=== PATIENT | male | born 1965 | race Caucasian/White ===

== ENCOUNTER 2022-03-18 15:30 | Outpatient (RCR) | payer OTHER, SELFPAY | END 2022-04-09 12:10 | disposition home or self-care (01) | PROVIDERS: Visit Provider Physician Assistant | DX: M25.562 Pain in left knee (principal); Z51.89 Encounter for other specified aftercare | CPT/HCPCS: 97110; 97140 ==

== ENCOUNTER 2023-07-08 19:14 | Emergency (ER) | payer OTHER, SELFPAY ==
[2023-07-08 19:19] VITALS: BP 132/72; PULSE 77; RESP 18; TEMP 36.6; O2SAT 93; BMI 33.2
--- NOTE | 2023-07-08 19:55 | ED.GENADULT ---
HPI - General Adult General Chief complaint: Unspecified Complaint, Adult Stated complaint: [place] says hemg was 6.3-needs labs and blood if nee Time Seen by Provider: 07/08/23 19:28 History of Present Illness HPI narrative: Patient is a 57-year-old gentleman who has an enteric cutaneous fistula and will be operated on at [facility]. Patient states he has a fistula because of recurrent abdominal surgeries. He feels fine. He is very much looking forward to his surgery as the fistula does empty on to the service of his anterior abdomen. Unfortunately he was seen for preop in [facility] today and had a hemoglobin of roughly 6.5. Patient has history of anemia because of which he is uncertain. Patient states that he was told to come to the ER and have his hemoglobin rechecked in try to get his hemoglobin above 7. Patient has chronic hypertension and diabetes but is not on any blood thinners. Related Data Home Medications Medication Instructions Recorded Confirmed amlodipine 10 mg tablet 10 mg PO DAILY 07/08/23 07/08/23 aripiprazole 20 mg tablet 20 mg PO DAILY 07/08/23 07/08/23 buprenorphine 8 mg-naloxone 2 mg 10 mg sublingual 3XD 07/08/23 07/08/23 sublingual film ergocalciferol (vitamin D2) 1,250 1,250 mcg PO 07/08/23 mcg (50,000 unit) capsule furosemide 20 mg tablet 20 mg PO DAILY 07/08/23 07/08/23 glucagon 3 mg/actuation nasal mg intranasal DIRECTED 07/08/23 spray (Baqsimi) hypoglycemia hydrocodone 10 mg-acetaminophen 1 tab PO 3XD PRN chronic pain 07/08/23 07/08/23 325 mg tablet insulin glargine-yfgn 100 unit/mL 25 unit subcut QPM 07/08/23 07/08/23 (3 mL) subcutaneous pen (Semglee (insulin glargine-yfgn) Pen) insulin lispro 100 unit/mL subcut 07/08/23 subcutaneous pen (Humalog KwikPen (U-100) Insulin) levothyroxine 88 mcg tablet mcg PO 07/08/23 fdkcul-gveqbkcf-nydwnsf 4 cap PO 3XD 07/08/23 07/08/23 36,000-114,000-180,000 unit capsule,delay rel (Creon) losartan 25 mg tablet 25 mg PO DAILY 07/08/23 07/08/23 nystatin-triamcinolone 100,000 applic topical BID-TID PRN 07/08/23 unit/g-0.1 % topical cream pimecrolimus 1 % topical cream applic topical BID 07/08/23 potassium chloride 20 mEq 20 meq PO 3XD 07/08/23 07/08/23 tablet,extended release(part/cryst) (Klor-Con M) pregabalin 200 mg capsule 200 mg PO 3XD 07/08/23 07/08/23 rosuvastatin 40 mg tablet 40 mg PO DAILY 07/08/23 07/08/23 semaglutide 0.25 mg or 0.5 mg (2 mg subcut 07/08/23 mg/3 mL) subcutaneous pen injector (Ozempic) testosterone 2 pump topical DAILY 07/08/23 07/08/23 varenicline 0.03 mg/spray nasal intranasal 07/08/23 spray (Tyrvaya) venlafaxine 37.5 mg 37.5 mg PO DAILY 07/08/23 07/08/23 capsule,extended release 24 hr Allergies Allergy/AdvReac Type Severity Reaction Status Date / Time TERRA Inhibitors Allergy Severe Verified 07/08/23 19:27 azithromycin [From Zithromax] Allergy Mild Verified 07/08/23 19:27 ketorolac [From Toradol] Allergy Mild Verified 07/08/23 19:27 Review of Systems Status of ROS: Reports: 10 or more systems reviewed and unremarkable except as noted in History and below [facility] Medical History (Updated 07/08/23 @ 21:00 by Biju Mccracken MD) Amputated right leg ?S88.911A - Complete traumatic amputation of right lower leg, level unspecified, initial encounter (ICD-10) Anemia ?D64.9 - Anemia, unspecified (ICD-10) Diabetes ?E11.9 - Type 2 diabetes mellitus without complications (ICD-10) SBO (small bowel obstruction) ?K56.609 - Unspecified intestinal obstruction, unspecified as to partial versus complete obstruction (ICD-10) Fistula ?L98.8 - Other specified disorders of the skin and subcutaneous tissue (ICD-10) Hernia ?K46.9 - Unspecified abdominal hernia without obstruction or gangrene (ICD-10) Surgical History (Updated 07/08/23 @ 20:02 by Biju Mccracken MD) H/O splenectomy ?Z90.81 - Acquired absence of spleen (ICD-10) Exam Narrative: Exam Narrative: EXAM GENERAL: Patient appears comfortable and well. Pale. EYES: No scleral icterus. THYROID: no thyroid nodules or thyromegaly. LYMPH: No supraclavicular or cervical lymphadenopathy. HEART: Regular rate and rhythm with no murmurs, rubs, or gallops. LUNGS: Clear to auscultation bilaterally with no crackles or wheezes. ABD: Soft, non tender, non distended. PSYCH: Good eye contact, speech is not pressured. Const: Vital Signs, click to edit/add: Vital Signs - 24 hr 07/08/23 19:19 Temperature 97.9 F Pulse Rate [Pulse Oximeter] 77 Respiratory Rate 18 Blood Pressure [Le ft Upper Arm] 132/72 Pulse Oximetry 93 Oxygen Delivery Me thod Room Air Course Course ED Course: Repeat labs pending. Vital Signs Vital signs: Initial Vital Signs Temperature 97.9 F 07/08/23 19:19 Temperature Source Temporal Artery Scan 07/08/23 19:19 Pulse Rate 77 07/08/23 19:19 Respiratory Rate 18 07/08/23 19:19 Blood Pressure 132/72 07/08/23 19:19 Blood Pressure Mean 92 07/08/23 19:19 Blood Pressure Position Sitting 07/08/23 19:19 Pulse Oximetry 93 07/08/23 19:19 Oxygen Delivery Method Room Air 07/08/23 19:19 Vital Signs Temperature 97.9 F 07/08/23 19:19 Pulse Rate 77 07/08/23 19:19 Respiratory Rate 18 07/08/23 19:19 Blood Pressure 132/72 07/08/23 19:19 Pulse Oximetry 93 07/08/23 19:19 Oxygen Delivery Method Room Air 07/08/23 19:19 Temperature 97.9 F 07/08/23 19:19 Pulse Rate 77 07/08/23 19:19 Respiratory Rate 18 07/08/23 19:19 Blood Pressure 132/72 07/08/23 19:19 Pulse Oximetry 93 07/08/23 19:19 Oxygen Delivery Method Room Air 07/08/23 19:19 Medical Decision Making MDM Narrative Medical decision making narrative: Patient is a 57-year-old gentleman who has a complex medical issues as outlined above who presents with anemia from his preop visit at [place] earlier today. We do recheck his hemoglobin finding it to be 6.2. Patient has chronic anemia and is scheduled for an enteric cutaneous fistula repair on Tuesday. His instructions from surgeon is to transfuse get him above 7. Patient has no obvious signs of bleeding. This time I did give him 1 unit of packed red blood cells and asked him to have his hemoglobin rejected [place] prior to his surgery on Tuesday. Patient is otherwise asymptomatic. Medical Records Medical records reviewed: Yes I reviewed the patient's medical records Lab Data Labs: Lab Results 07/08/23 Range/Units 20:26 WBC 3.73 L (4.50-11.00) K/uL RBC 2.62 L (4.30-5.90) m/uL Hgb 6.2 L* (13.5-17.5) gm/dL Hct 22.5 L (37.0-53.0) % MCV 86 (80-100) fL MCH 24 L (26-34) pg MCHC 28 L (32-36) gm/dL RDW Coeff of Feliciano 20.3 H (11.5-15.5) % Plt Count 457 H (140-440) K/uL Neut % (Auto) 31.1 L (42.0-72.0) % Lymph % (Auto) 36.2 (20-44) % Otero % (Auto) 22.8 H (0.0-11.0) % Eos % (Auto) 9.1 H (0.0-7.0) % Baso % (Auto) 0.5 (0.0-3.0) % Neut # (Auto) 1.20 L (1.7-7.0) K/uL Lymph # (Auto) 1.40 (0.90-2.90) K/uL Otero # (Auto) 0.90 (0.00-0.90) K/UL Eos # (Auto) 0.30 (0.00-0.50) K/uL Baso # (Auto) 0.00 (0.00-0.30) K/uL Abs Immat Gran (auto) 0.00 (0.00-0.30) K/uL Imm/Tot Granulo (auto) 0.3 % Sodium 137 (135-149) mmol/L Potassium 4.1 (3.6-5.1) mmol/L Chloride 101 (96-114) mmol/L Carbon Dioxide 31 (20-32) mmol/L Anion Gap 5 L (7-15) mEq/L BUN 7 (7-30) mg/dL Creatinine 0.4 L (0.5-1.5) mg/dL Estimated Creat Clear 219.63 Estimated GFR 128 ml/min Glucose 155 H (60-115) mg/dL Calcium 7.7 L (8.4-10.6) mg/dL Discharge Plan Discharge Clinical Impression: Anemia Patient Disposition: Home, Self-Care Condition: Stable Instructions: Anemia (ED) Additional Instructions: Continue current care Follow-up for your surgery on Tuesday. Activity Level: No Restrictions Discharge Diet: Regular Prescriptions: No Action venlafaxine 37.5 mg capsule,extended release 24hr 37.5 mg PO DAILY pimecrolimus 1 % cream topical BID hydrocodone-acetaminophen 10-325 mg tablet 1 tab PO 3XD PRN (Reason: chronic pain) levothyroxine 88 mcg tablet PO potassium chloride [Klor-Con M20] 20 mEq tablet,ER particles/crystals 20 meq PO 3XD amlodipine 10 mg tablet 10 mg PO DAILY losartan 25 mg tablet 25 mg PO DAILY nystatin-triamcinolone 100,000-0.1 unit/g-% cream topical BID-TID PRN furosemide 20 mg tablet 20 mg PO DAILY ergocalciferol (vitamin D2) 1,250 mcg (50,000 unit) capsule 1,250 mcg PO insulin lispro [Humalog KwikPen Insulin] 100 unit/mL insulin pen subcut aripiprazole 20 mg tablet 20 mg PO DAILY rosuvastatin 40 mg tablet 40 mg PO DAILY pregabalin 200 mg capsule 200 mg PO 3XD buprenorphine-naloxone 8-2 mg film 10 mg sublingual 3XD testosterone 20.25 mg/1.25 gram (1.62 %) gel in metered-dose pump 2 pump topical DAILY Creon 36,000-114,000- 180,000 unit capsule,delayed release(DR/EC) 4 cap PO 3XD Baqsimi 3 mg/actuation spray,non-aerosol INTRANASAL DIRECTED insulin glargine-yfgn [Semglee(insulin glarg-yfgn)Pen] 100 unit/mL (3 mL) insulin pen 25 unit subcut QPM Tyrvaya 0.03 mg/spray spray, metered, non-aerosol INTRANASAL Patient Comments: [NO ORIGINAL SIG] Ozempic 0.25 mg or 0.5 mg (2 mg/3 mL) pen injector subcut Follow Up/Referrals: Provider,Not a Local [Primary Care Provider] - Stand Alone Forms: [employer] Info Instructions
[2023-07-08 20:40] LABS: Basophils Percent Auto 0.5 % (0.0-3.0); Eosinophils Percent Auto 9.1 % (0.0-7.0); Hematocrit 22.5 % (37.0-53.0); Immature Granulocytes Pct Auto 0.3 %; Lymphocytes Percent Auto 36.2 % (20-44); Mean Corpuscular HGB Conc 28 gm/dL (32-36); Mean Corpuscular Hemoglobin 24 pg (26-34); Mean Corpuscular Volume 86 fL (80-100); Monocytes Percent Auto 22.8 % (0.0-11.0); Neutrophils Percent Auto 31.1 % (42.0-72.0); Platelet Count* 457 K/uL (140-440); RDW Coefficient of Variation % 20.3 % (11.5-15.5); Red Blood Count 2.62 m/uL (4.30-5.90); White Blood Count* 3.73 K/uL (4.50-11.00)
[2023-07-08 20:47] LABS: Hemoglobin* 6.2 gm/dL (13.5-17.5)
[2023-07-08 20:48] LABS: Chloride* 101 mmol/L (96-114)
[2023-07-08 20:49] LABS: Potassium* 4.1 mmol/L (3.6-5.1); Slide Review Reflex Yes; Sodium* 137 mmol/L (135-149)
[2023-07-08 20:51] LABS: Creatinine* 0.4 mg/dL (0.5-1.5); Est. Creatinine Clearance* 219.63; Estimated Glomerular Filt Rate 128 ml/min
[2023-07-08 20:52] LABS: Anion Gap 5 mEq/L (7-15); Blood Urea Nitrogen* 7 mg/dL (7-30); Calcium* 7.7 mg/dL (8.4-10.6); Carbon Dioxide* 31 mmol/L (20-32); Glucose* 155 mg/dL (60-115)
[2023-07-08 21:15] VITALS: BP 145/77; PULSE 70; RESP 16; O2SAT 93
[2023-07-08 21:19] LABS: Slide Review Acceptable Review (Acceptable)
[2023-07-08 22:30] VITALS: BP 132/70; PULSE 64; RESP 16; TEMP 36.7; O2SAT 86
[2023-07-08 22:46] VITALS: BP 132/69; PULSE 73; RESP 18; TEMP 36.6; O2SAT 88
[2023-07-08 22:47] VITALS: BP 122/69; PULSE 64; RESP 16; TEMP 36.6; O2SAT 88
[2023-07-08 23:32] VITALS: BP 133/78; PULSE 62; RESP 18; TEMP 36.6; O2SAT 90
[2023-07-09 00:35] VITALS: BP 133/78; PULSE 71; RESP 18; O2SAT 90
--- NOTE | 2023-07-09 00:35 | PC.NURSE ---
DC instructions reviewed with patient and . patient states understanding with no further questions. all belongings sent with patient at time of DC
[2023-07-09 00:50] VITALS: BP 129/71; PULSE 71; RESP 16; TEMP 36.4; O2SAT 90
--- NOTE | 2023-07-09 00:51 | PC.NURSE ---
patient DC accompanied by , DC teaching reviewed with patient and , no further questions. all belonging sent with patient
== END 2023-07-09 00:52 | disposition home or self-care (01) ==
PROVIDERS: Emergency Provider Internal Medicine
DX: D64.9 Anemia, unspecified (principal)
CPT/HCPCS: 36415; 36430; 80048; 85025; 86850; 86900; 86901; 86922; 99283; 99284; P9016

== ENCOUNTER 2023-08-07 17:54 | Outpatient (CLI) | payer MEDICARE, BC, SELFPAY | END 2023-08-07 17:55 | disposition home or self-care (01) | PROVIDERS: Visit Provider Student in an Organized Health Care Education/Training Program | DX: E16.2 Hypoglycemia, unspecified (principal); R41.82 Altered mental status, unspecified | CPT/HCPCS: A0425; A0429 ==

== ENCOUNTER 2023-08-07 18:44 | Emergency (ER) | payer MEDICARE, BC, OTHER, SELFPAY ==
[2023-08-07] VITALS (28 sets, daily range): BP systolic 98–159; BP diastolic 49–81; PULSE 70–79; RESP 16; TEMP 35.8; O2SAT 92–99
[2023-08-07] MEDS: DEXTROSE 50 % SYRINGE IVP ×5 (18:50→23:48)
--- NOTE | 2023-08-07 18:53 | ED.GENADULT ---
HPI - General Adult General Time Seen by Provider: 18:53 <Lexie Colvin MD - Last Filed: 08/07/23 21:14> Date Seen: 08/07/23 <Lexie Colvin MD - Last Filed: 08/07/23 21:14> Chief complaint: Diabetic Related Problem <Lexie Colvin MD - Last Filed: 08/07/23 21:14> Stated complaint: weak, low BS/diabetes <Lexie Colvin MD - Last Filed: 08/07/23 21:14> Time Seen by Provider: 08/07/23 18:52 <Lexie Colvin MD - Last Filed: 08/07/23 21:14> Source: patient, EMS and RN notes reviewed <Lexie Colvin MD - Last Filed: 08/07/23 21:14> Mode of arrival: EMS <Lexie Colvin MD - Last Filed: 08/07/23 21:14> History of Present Illness HPI narrative: Patient is a 57-year-old male brought in by EMS from home with low blood sugar. He is insulin-dependent, has been having low blood sugars today. He states he really has not ate well today, does not sound like he altered any of his insulin doses. He just got home from the hospital yesterday from [facility]. He was hospitalized July 10 through August 06. He had an enterocutaneous fistula, did have a wound VAC which is subsequently been stopped. He had pre planned surgery on July 10 for enterocutaneous abdominal fistula. He had PICC line placed, did receive a blood transfusion. He had his surgery on July 11, enterocutaneous fistula takedown, lysis of adhesions, resection of prior small bowel anastomosis containing fistula, excision of skin with draining enterocutaneous fistula tracks, hand-sewn [id number] small bowel anastomosis. Wound VAC was placed postoperative. Pain service was consulted due to his chronic pain and Suboxone use. On July 12 he had worsening respiratory status and was transferred to SICU for respiratory support and diuresis, hemoglobin was 6.7 at that point in he was transfused. He he also had fever of 39.3. He did have multiple hypoglycemic episodes requiring multiple doses of D50. On July 13 he return to the OR for wound irrigation and wound VAC exchange, delayed primary closure was unsuccessful. He went back to the surgical ICU. He was using CPAP reportedly overnight. He went back to the operating room on July 16 for irrigation and debridement, skin was closed with vertical mattress sutures over 2 FABBY drains, seizure in a wound VAC applied. On July 19 he had bilateral worsening upper extremity muscle jerking, active tremor. Pharmacy thought this could be extra pyramidal symptoms and was given IV Benadryl. He had slight improvement, eventually went oral Benadryl and was eventually stopped. FABBY drain right side was removed on July 22. That evening he was found to be febrile, tachycardic, increased oxygen demands and worsening leukocytosis, initiated on broad-spectrum antibiotics. On July 29 he had further irrigation debridement due to worsening of the open portion of the wound and separation of the midline staple line. Infectious Disease consult on July 26 for Enterococcus faecium growth from blood cultures on July 22. PICC line was exchanged over a wire, antibiotic course was transition from Zosyn to daptomycin to complete a 10 day course. On July 31 he had decreased mental status, CT scan on August 02 with concerning for pneumonia. Zosyn was added for treatment he transition to Augmentin at discharge to complete a 7 day course of treatment. He continued to have declining alertness, liver enzymes are found to be elevated, lactulose was initiated. Daptomycin was changed to vancomycin to complete the course. He was reportedly back to his baseline and August 04. New medications on his discharge summary are Augmentin, Flexeril, oxycodone, MiraLax, senna. Of note, patient states his wound looks like it is baseline. Denies any pain anywhere. Patient is adamant that he has not taken extra pain medicines, believes he last used pain medication around noon today. 8:00 p.m.: His is now present, was able to talk to her. She does not believe he took any extra medicine today of any form including his diabetic meds. Last night when they got home, he was much different. The ate on the way home, he ate all of his sandwich. His appetite has been diminished today, throughout the day he has gotten progressively more weak and more sleepy. She is not able to give me any specific focal symptoms that he was complaining about other than these generalized issues. His sugars were running somewhat low throughout the day, he did take some choose, some glucose tabs he had. She notes he did eat some breakfast, half of sandwich at lunch. He was eating than this prior to discharge from the hospitalization as well as last night on the way home. We have discussed the need for transfer. <Lexie Colvin MD - Last Filed: 08/07/23 21:14> Related Data Home medications: Home Medications Medication Instructions Recorded Confirmed amlodipine 10 mg tablet 10 mg PO DAILY 07/08/23 07/08/23 aripiprazole 20 mg tablet 20 mg PO DAILY 07/08/23 07/08/23 buprenorphine 8 mg-naloxone 2 mg 10 mg sublingual 3XD 07/08/23 07/08/23 sublingual film ergocalciferol (vitamin D2) 1,250 1,250 mcg PO 07/08/23 mcg (50,000 unit) capsule furosemide 20 mg tablet 20 mg PO DAILY 07/08/23 07/08/23 glucagon 3 mg/actuation nasal mg intranasal DIRECTED 07/08/23 spray (Baqsimi) hypoglycemia hydrocodone 10 mg-acetaminophen 1 tab PO 3XD PRN chronic pain 07/08/23 07/08/23 325 mg tablet insulin glargine-yfgn 100 unit/mL 25 unit subcut QPM 07/08/23 07/08/23 (3 mL) subcutaneous pen (Semglee (insulin glargine-yfgn) Pen) insulin lispro 100 unit/mL subcut 07/08/23 subcutaneous pen (Humalog KwikPen (U-100) Insulin) levothyroxine 88 mcg tablet mcg PO 07/08/23 xamadf-rwejcdqm-gydwzos 4 cap PO 3XD 07/08/23 07/08/23 36,000-114,000-180,000 unit capsule,delay rel (Creon) losartan 25 mg tablet 25 mg PO DAILY 07/08/23 07/08/23 nystatin-triamcinolone 100,000 applic topical BID-TID PRN 07/08/23 unit/g-0.1 % topical cream pimecrolimus 1 % topical cream applic topical BID 07/08/23 potassium chloride 20 mEq 20 meq PO 3XD 07/08/23 07/08/23 tablet,extended release(part/cryst) (Klor-Con M) pregabalin 200 mg capsule 200 mg PO 3XD 07/08/23 07/08/23 rosuvastatin 40 mg tablet 40 mg PO DAILY 07/08/23 07/08/23 semaglutide 0.25 mg or 0.5 mg (2 mg subcut 07/08/23 mg/3 mL) subcutaneous pen injector (Ozempic) testosterone 2 pump topical DAILY 07/08/23 07/08/23 varenicline 0.03 mg/spray nasal intranasal 07/08/23 spray (Tyrvaya) venlafaxine 37.5 mg 37.5 mg PO DAILY 07/08/23 07/08/23 capsule,extended release 24 hr <Lexie Colvin MD - Last Filed: 08/07/23 21:14> Allergies/adverse reactions: Allergies Allergy/AdvReac Type Severity Reaction Status Date / Time TERRA Inhibitors Allergy Severe Verified 07/08/23 19:27 azithromycin [From Zithromax] Allergy Mild Verified 07/08/23 19:27 ketorolac [From Toradol] Allergy Mild Verified 07/08/23 19:27 <Lexie Colvin MD - Last Filed: 08/07/23 21:14> Review of Systems Status of ROS: Reports: 6 or more systems reviewed and unremarkable except as noted in History and below <Lexie Colvin MD - Last Filed: 08/07/23 21:14> [facility] Medical History: Medical History Amputated right leg ?S88.911A - Complete traumatic amputation of right lower leg, level unspecified, initial encounter (ICD-10) Anemia ?D64.9 - Anemia, unspecified (ICD-10) Diabetes ?E11.9 - Type 2 diabetes mellitus without complications (ICD-10) SBO (small bowel obstruction) ?K56.609 - Unspecified intestinal obstruction, unspecified as to partial versus complete obstruction (ICD-10) Fistula ?L98.8 - Other specified disorders of the skin and subcutaneous tissue (ICD-10) Hernia ?K46.9 - Unspecified abdominal hernia without obstruction or gangrene (ICD-10) <Lexie Colvin MD - Last Filed: 08/07/23 21:14> Surgical History: Surgical History H/O splenectomy ?Z90.81 - Acquired absence of spleen (ICD-10) <Lexie Colvin MD - Last Filed: 08/07/23 21:14> Social History: Social History Smoking Status: Unknown if ever smoked <Lexie Colvin MD - Last Filed: 08/07/23 21:14> Exam Const: Vital Signs, click to edit/add: Vital Signs - 24 hr 08/07/23 19:01 08/07/23 19:07 08/07/23 19:07 Temperature 96.5 F L Pulse Rate 73 Pulse Rate [Pulse Oximeter] 73 Respiratory Rate 16 Blood Pressure Blood Pressure [Ri ght Upper Arm] 122/72 Pulse Oximetry 94 96 94 Oxygen Delivery Me thod Room Air 08/07/23 19:15 08/07/23 19:44 08/07/23 19:46 Temperature Pulse Rate 73 79 77 Pulse Rate [Pulse Oximeter] Respiratory Rate Blood Pressure 140/49 H Blood Pressure [Ri ght Upper Arm] Pulse Oximetry 96 99 95 Oxygen Delivery Me thod 08/07/23 20:02 08/07/23 20:03 08/07/23 20:15 Temperature Pulse Rate 76 73 73 Pulse Rate [Pulse Oximeter] Respiratory Rate Blood Pressure 159/81 H Blood Pressure [Ri ght Upper Arm] Pulse Oximetry 94 94 95 Oxygen Delivery Me thod 08/07/23 20:30 08/07/23 20:45 08/07/23 21:00 Temperature Pulse Rate 74 74 72 Pulse Rate [Pulse Oximeter] Respiratory Rate Blood Pressure Blood Pressure [Ri ght Upper Arm] Pulse Oximetry 99 97 97 Oxygen Delivery Me thod 08/07/23 21:02 08/07/23 21:15 08/07/23 21:30 Temperature Pulse Rate 74 73 74 Pulse Rate [Pulse Oximeter] Respiratory Rate Blood Pressure 121/68 Blood Pressure [Ri ght Upper Arm] Pulse Oximetry 95 95 97 Oxygen Delivery Me thod 08/07/23 21:32 08/07/23 21:45 08/07/23 22:00 Temperature Pulse Rate 78 73 76 Pulse Rate [Pulse Oximeter] Respiratory Rate Blood Pressure 117/69 Blood Pressure [Ri ght Upper Arm] Pulse Oximetry 95 96 97 Oxygen Delivery Me thod 08/07/23 22:02 08/07/23 22:15 08/07/23 22:30 Temperature Pulse Rate 76 75 74 Pulse Rate [Pulse Oximeter] Respiratory Rate Blood Pressure 107/55 L Blood Pressure [Ri ght Upper Arm] Pulse Oximetry 96 96 96 Oxygen Delivery Me thod 08/07/23 22:32 08/07/23 22:45 Temperature Pulse Rate 74 70 Pulse Rate [Pulse Oximeter] Respiratory Rate Blood Pressure 106/80 Blood Pressure [Ri ght Upper Arm] Pulse Oximetry 96 93 Oxygen Delivery Me thod 57-year-old male appears tired but is easily arousable, appears pale. Pupils are equal round, sclera clear, conjugate gaze. Lips are dry, oropharynx dry, speech is normal however. He is unable to lean forward to listen to his back, nursing staff helps me rotate gently. He has crackles left lung base, clear elsewhere, admit overall poor effort. CV regular rate and rhythm, no murmur, normal S1-S2, no S3-S4. Abdomen is obese but has central wound, there is some mild erythema around the edges of this wound, some central stitches, some packing with some yellowish discharge on the gauze packing. There is no significant tenderness when I palpate, patient states this is how the wound has looked. He states it was worse. He has amputation of his right lower extremity, left lower extremity with venous pigmentary changes but no appreciable pitting edema at this time. <Lexie Colvin MD - Last Filed: 08/07/23 21:14> Vital Signs, click to edit/add: Vital Signs - 24 hr 08/07/23 19:01 08/07/23 19:07 08/07/23 19:07 Temperature 96.5 F L Pulse Rate 73 Pulse Rate [Pulse Oximeter] 73 Respiratory Rate 16 Blood Pressure Blood Pressure [Ri ght Upper Arm] 122/72 Pulse Oximetry 94 96 94 Oxygen Delivery Me thod Room Air 08/07/23 19:15 08/07/23 19:44 08/07/23 19:46 Temperature Pulse Rate 73 79 77 Pulse Rate [Pulse Oximeter] Respiratory Rate Blood Pressure 140/49 H Blood Pressure [Ri ght Upper Arm] Pulse Oximetry 96 99 95 Oxygen Delivery Me thod 08/07/23 20:02 08/07/23 20:03 08/07/23 20:15 Temperature Pulse Rate 76 73 73 Pulse Rate [Pulse Oximeter] Respiratory Rate Blood Pressure 159/81 H Blood Pressure [Ri ght Upper Arm] Pulse Oximetry 94 94 95 Oxygen Delivery Me thod 08/07/23 20:30 08/07/23 20:45 08/07/23 21:00 Temperature Pulse Rate 74 74 72 Pulse Rate [Pulse Oximeter] Respiratory Rate Blood Pressure Blood Pressure [Ri ght Upper Arm] Pulse Oximetry 99 97 97 Oxygen Delivery Me thod 08/07/23 21:02 08/07/23 21:15 08/07/23 21:30 Temperature Pulse Rate 74 73 74 Pulse Rate [Pulse Oximeter] Respiratory Rate Blood Pressure 121/68 Blood Pressure [Ri ght Upper Arm] Pulse Oximetry 95 95 97 Oxygen Delivery Me thod 08/07/23 21:32 08/07/23 21:45 08/07/23 22:00 Temperature Pulse Rate 78 73 76 Pulse Rate [Pulse Oximeter] Respiratory Rate Blood Pressure 117/69 Blood Pressure [Ri ght Upper Arm] Pulse Oximetry 95 96 97 Oxygen Delivery Me thod 08/07/23 22:02 08/07/23 22:15 08/07/23 22:30 Temperature Pulse Rate 76 75 74 Pulse Rate [Pulse Oximeter] Respiratory Rate Blood Pressure 107/55 L Blood Pressure [Ri ght Upper Arm] Pulse Oximetry 96 96 96 Oxygen Delivery Me thod 08/07/23 22:32 08/07/23 22:45 Temperature Pulse Rate 74 70 Pulse Rate [Pulse Oximeter] Respiratory Rate Blood Pressure 106/80 Blood Pressure [Ri ght Upper Arm] Pulse Oximetry 96 93 Oxygen Delivery Me thod <Gaurav Cedeño, DO - Last Filed: 08/08/23 00:33> Vital Signs, click to edit/add: Vital Signs - 24 hr 08/07/23 19:01 08/07/23 19:07 08/07/23 19:07 Temperature 96.5 F L Pulse Rate 73 Pulse Rate [Pulse Oximeter] 73 Respiratory Rate 16 Blood Pressure Blood Pressure [Ri ght Upper Arm] 122/72 Pulse Oximetry 94 96 94 Oxygen Delivery Me thod Room Air 08/07/23 19:15 08/07/23 19:44 08/07/23 19:46 Temperature Pulse Rate 73 79 77 Pulse Rate [Pulse Oximeter] Respiratory Rate Blood Pressure 140/49 H Blood Pressure [Ri ght Upper Arm] Pulse Oximetry 96 99 95 Oxygen Delivery Me thod 08/07/23 20:02 08/07/23 20:03 08/07/23 20:15 Temperature Pulse Rate 76 73 73 Pulse Rate [Pulse Oximeter] Respiratory Rate Blood Pressure 159/81 H Blood Pressure [Ri ght Upper Arm] Pulse Oximetry 94 94 95 Oxygen Delivery Me thod 08/07/23 20:30 08/07/23 20:45 08/07/23 21:00 Temperature Pulse Rate 74 74 72 Pulse Rate [Pulse Oximeter] Respiratory Rate Blood Pressure Blood Pressure [Ri ght Upper Arm] Pulse Oximetry 99 97 97 Oxygen Delivery Me thod 08/07/23 21:02 08/07/23 21:15 08/07/23 21:30 Temperature Pulse Rate 74 73 74 Pulse Rate [Pulse Oximeter] Respiratory Rate Blood Pressure 121/68 Blood Pressure [Ri ght Upper Arm] Pulse Oximetry 95 95 97 Oxygen Delivery Me thod 08/07/23 21:32 08/07/23 21:45 08/07/23 22:00 Temperature Pulse Rate 78 73 76 Pulse Rate [Pulse Oximeter] Respiratory Rate Blood Pressure 117/69 Blood Pressure [Ri ght Upper Arm] Pulse Oximetry 95 96 97 Oxygen Delivery Me thod 08/07/23 22:02 08/07/23 22:15 08/07/23 22:30 Temperature Pulse Rate 76 75 74 Pulse Rate [Pulse Oximeter] Respiratory Rate Blood Pressure 107/55 L Blood Pressure [Ri ght Upper Arm] Pulse Oximetry 96 96 96 Oxygen Delivery Me thod 08/07/23 22:32 08/07/23 22:45 Temperature Pulse Rate 74 70 Pulse Rate [Pulse Oximeter] Respiratory Rate Blood Pressure 106/80 Blood Pressure [Ri ght Upper Arm] Pulse Oximetry 96 93 Oxygen Delivery Me thod <Dk Meehan MD - Last Filed: 08/15/23 20:02> Documenting provider has reviewed patient's vital signs: yes <Lexie Colvin MD - Last Filed: 08/07/23 21:14> Course Course ED Course: Patient obviously has hypoglycemia, could be poor intake and continued use of insulin. However, looking back at his records, did have hypoglycemia issues during hospitalization. He has had recent infections and significant lengthy hospitalization. I do think we need to consider infection feeling his symptomatology. He really is just felt weaker today. Will get full complement of labs including liver functions give any had some liver dysfunction in the hospital. He is reportedly on Augmentin for antibiotics. He also had fluid overload that was significant during his hospitalization, need to be mindful of that. Nursing staff thankfully has gotten IV in his left upper extremity. We were able to given initial amp of D50. Will continue to monitor his sugars. I am going to do a chest abdomen pelvis CT, will do point of care creatinine so we do not have to have any lengthy wait before obtaining these imaging studies. <Lexie Colvin MD - Last Filed: 08/07/23 21:14> Reevaluation(s) Time of Reevaluation #1: 19:16 <Lexie Colvin MD - Last Filed: 08/07/23 21:14> Reevaluation #1: Nursing staff reports patient is still is sleepy. They are requesting Daniel for monitoring of fluids which I agree with at this time. They are going to do another glucose check. <Lexie Colvin MD - Last Filed: 08/07/23 21:14> Time of Reevaluation #2: 19:43 <Lexie Colvin MD - Last Filed: 08/07/23 21:14> Reevaluation #2: Glucose POC is 55, patient seems sleepy but easily arousable. Will order a subsequent an amp of D50, initiate D5 with LR. Really check glucose in 30 minutes or before if needed. <Lexie Colvin MD - Last Filed: 08/07/23 21:14> Time of Reevaluation #3: 20:20 <Lexie Colvin MD - Last Filed: 08/07/23 21:14> Reevaluation #3: At 8:00 p.m., glucose was 129. Nursing staff has reported that it has dropped back down into the 80s despite being on 75ml/hr of D5LR; we will increase to 125ml/hr. 9:06 p.m.: Have went back to check on the patient. He was sleeping but is easily arousable with just voice. His has no new concerns, nothing beyond what we talked about on arrival. His CT is in the process of being read. Have reviewed with his and the patient that I have contacted [facility] twice now, we are waiting to hear back. He will need to continue to have his glucose monitored closely. <Lexie Colvin MD - Last Filed: 08/07/23 21:14> Additional Reevaluation(s): 8:37 p.m.: Nursing staff reported that patient is back in the 50s for blood sugar. Will order another amp of D50. May need to consider switching from D5 to D10. The 2nd blood culture has just been obtained per nursing staff. Will order vancomycin and Zosyn given that I feel this may be his presenting presentation for infection and possibly developing sepsis. Did call back to [facility], they are still waiting to get a physician for us to talk to. Did report that I will likely be leaving soon, in the event I am gone, they will need to talk to Dr. Cedeño. CT imaging has not been read by Radiology yet. I do see the pneumonia on the left side, do not have old films to compare to. Does have some dilated bowel on his abdomen, really need to await the radiologist's over-read on this. See inflammatory changes in the abdomen to would certainly may be from postsurgical issues. Have also spoken to lab, INR was not done but PTT was. They should be able to do an INR. Have also done lab add on for ionized calcium, magnesium and procalcitonin. <Lexie Colvin MD - Last Filed: 08/07/23 21:14> Consultations Consultation #1: Spoke with our hospitalist , case reviewed. He is concerned regarding the significant hypoglycemia in the context of a complicated patient with multiple cor morbidities and conditions. Thinks he will likely require multifaceted care. We both agree that this could be a presentation of infection starting to manifest or worsens such as is pneumonia. He is not hypoxic, not requiring any imminent treatments other than glucose at this point. He feels the patient needs to be transferred back to [facility]. Did subsequently contact Meron SANTOS in the transfer center at 7:53 p.m.. 9:12 p.m.: Have spoken with Meron SANTOS in the transfer center at [facility]. Updated her on the CT findings, his ongoing hypoglycemia. She will be contacting general surgery. He really does need to transfer back to [facility]. I also updated her that I have initiated antibiotics for concern for underlying developing infection/sepsis being manifested by hypoglycemia. She will be contacting surgery, consulting endocrinology if surgery once this. I will be signing over care at this time to Dr. Cedeño. <Lexie Colvin MD - Last Filed: 08/07/23 21:14> Time: 19:48 <Lexie Colvin MD - Last Filed: 08/07/23 21:14> Vital Signs Vital signs: Initial Vital Signs Temperature 96.5 F L 08/07/23 19:01 Temperature Source Temporal Artery Scan 08/07/23 19:01 Pulse Rate 73 08/07/23 19:01 Respiratory Rate 16 08/07/23 19:01 Blood Pressure 122/72 08/07/23 19:01 Blood Pressure Mean 88 08/07/23 19:01 Blood Pressure Position Supine 08/07/23 19:01 Pulse Oximetry 94 08/07/23 19:01 Oxygen Delivery Method Room Air 08/07/23 19:01 Vital Signs Temperature 96.5 F L 08/07/23 19:01 Pulse Rate 73 08/07/23 19:01 Respiratory Rate 16 08/07/23 19:01 Blood Pressure 122/72 08/07/23 19:01 Pulse Oximetry 94 08/07/23 19:01 Oxygen Delivery Method Room Air 08/07/23 19:01 Temperature 96.5 F L 08/07/23 19:01 Pulse Rate 81 08/08/23 02:26 Respiratory Rate 20 08/08/23 02:26 Blood Pressure 113/57 L 08/08/23 02:26 Pulse Oximetry 92 08/08/23 02:26 Oxygen Delivery Method Nasal Cannula 08/08/23 02:02 Oxygen Flow Rate 2 08/08/23 02:02 <Lexie Colvin MD - Last Filed: 08/07/23 21:14> Initial Vital Signs Temperature 96.5 F L 08/07/23 19:01 Temperature Source Temporal Artery Scan 08/07/23 19:01 Pulse Rate 73 08/07/23 19:01 Respiratory Rate 16 08/07/23 19:01 Blood Pressure 122/72 08/07/23 19:01 Blood Pressure Mean 88 08/07/23 19:01 Blood Pressure Position Supine 08/07/23 19:01 Pulse Oximetry 94 08/07/23 19:01 Oxygen Delivery Method Room Air 08/07/23 19:01 Vital Signs Temperature 96.5 F L 08/07/23 19:01 Pulse Rate 73 08/07/23 19:01 Respiratory Rate 16 08/07/23 19:01 Blood Pressure 122/72 08/07/23 19:01 Pulse Oximetry 94 08/07/23 19:01 Oxygen Delivery Method Room Air 08/07/23 19:01 Temperature 96.5 F L 08/07/23 19:01 Pulse Rate 81 08/08/23 02:26 Respiratory Rate 20 08/08/23 02:26 Blood Pressure 113/57 L 08/08/23 02:26 Pulse Oximetry 92 08/08/23 02:26 Oxygen Delivery Method Nasal Cannula 08/08/23 02:02 Oxygen Flow Rate 2 08/08/23 02:02 <Gaurav Cedeño DO - Last Filed: 08/08/23 00:33> Initial Vital Signs Temperature 96.5 F L 08/07/23 19:01 Temperature Source Temporal Artery Scan 08/07/23 19:01 Pulse Rate 73 08/07/23 19:01 Respiratory Rate 16 08/07/23 19:01 Blood Pressure 122/72 08/07/23 19:01 Blood Pressure Mean 88 08/07/23 19:01 Blood Pressure Position Supine 08/07/23 19:01 Pulse Oximetry 94 08/07/23 19:01 Oxygen Delivery Method Room Air 08/07/23 19:01 Vital Signs Temperature 96.5 F L 08/07/23 19:01 Pulse Rate 73 08/07/23 19:01 Respiratory Rate 16 08/07/23 19:01 Blood Pressure 122/72 08/07/23 19:01 Pulse Oximetry 94 08/07/23 19:01 Oxygen Delivery Method Room Air 08/07/23 19:01 Temperature 96.5 F L 08/07/23 19:01 Pulse Rate 81 08/08/23 02:26 Respiratory Rate 20 08/08/23 02:26 Blood Pressure 113/57 L 08/08/23 02:26 Pulse Oximetry 92 08/08/23 02:26 Oxygen Delivery Method Nasal Cannula 08/08/23 02:02 Oxygen Flow Rate 2 08/08/23 02:02 <Dk Meehan MD - Last Filed: 08/15/23 20:02> Medications Administered Medications: Discontinued Medications Generic Name Dose Route Start Last Admin Trade Name Freq PRN Reason Stop Dose Admin Dextrose 25 gm 08/07/23 18:51 08/07/23 18:50 Dextrose 50 % Syringe IVP 08/07/23 18:52 25 gm ONCE ONE Administration Dextrose 25 gm 08/07/23 19:43 08/07/23 19:49 Dextrose 50 % Syringe IVP 08/07/23 19:44 25 gm ONCE ONE Administration Dextrose 25 gm 08/07/23 20:37 08/07/23 20:47 Dextrose 50 % Syringe IVP 08/07/23 20:38 25 gm ONCE ONE Administration Dextrose 25 gm 08/07/23 23:39 08/07/23 23:48 Dextrose 50 % Syringe IVP 08/07/23 23:40 25 gm ONCE ONE Administration Dextrose 25 gm 08/07/23 23:40 08/07/23 22:08 Dextrose 50 % Syringe IVP 08/07/23 23:41 25 gm ONCE ONE Administration Dextrose/Lactated Ringer's 1,000 mls @ 75 mls/hr 08/07/23 19:44 08/07/23 21:06 5 % Dextrose In [place] Ringer's IV 0 mls/hr .[id number] JACOB Infusion Dextrose/Lactated Ringer's 1,000 mls @ 125 mls/hr 08/07/23 20:19 08/08/23 01:10 5 % Dextrose In [place] Ringer's IV Not Given .Q8H JACOB Piperacillin Sod/Tazobactam 100 mls @ 200 mls/hr 08/07/23 20:38 08/07/23 21:25 Sod 3.375 gm/ Sodium Chloride IVPB 08/07/23 20:39 Infused ONCE ONE Infusion Vancomycin HCl 2,000 mg/ 520 mls @ 260 mls/hr 08/07/23 20:38 08/07/23 23:35 Sodium Chloride IVPB 08/07/23 20:39 Infused ONCE ONE Infusion Protocol Dextrose 500 mls @ 75 mls/hr 08/07/23 20:45 08/08/23 01:35 10 % Dextrose 500 Ml IV Infused .[id number] JACOB Infusion Dextrose 500 mls @ 125 mls/hr 08/07/23 23:21 08/08/23 01:35 10 % Dextrose 500 Ml IV 125 mls/hr .Q4H JACOB Administration Octreotide Acetate 50 mcg 08/07/23 23:20 08/08/23 00:15 Octreotide Acetate 100 Mcg/Ml Inj IV 08/07/23 23:21 50 mcg ONCE ONE Administration Ondansetron HCl 4 mg 08/08/23 00:11 08/08/23 00:23 Ondansetron 2 Mg/Ml Inj IVP 08/08/23 00:12 4 mg ONCE ONE Administration <Lexie Colvin MD - Last Filed: 08/07/23 21:14> Discontinued Medications Generic Name Dose Route Start Last Admin Trade Name Freq PRN Reason Stop Dose Admin Dextrose 25 gm 08/07/23 18:51 08/07/23 18:50 Dextrose 50 % Syringe IVP 08/07/23 18:52 25 gm ONCE ONE Administration Dextrose 25 gm 08/07/23 19:43 08/07/23 19:49 Dextrose 50 % Syringe IVP 08/07/23 19:44 25 gm ONCE ONE Administration Dextrose 25 gm 08/07/23 20:37 08/07/23 20:47 Dextrose 50 % Syringe IVP 08/07/23 20:38 25 gm ONCE ONE Administration Dextrose 25 gm 08/07/23 23:39 08/07/23 23:48 Dextrose 50 % Syringe IVP 08/07/23 23:40 25 gm ONCE ONE Administration Dextrose 25 gm 08/07/23 23:40 08/07/23 22:08 Dextrose 50 % Syringe IVP 08/07/23 23:41 25 gm ONCE ONE Administration Dextrose/Lactated Ringer's 1,000 mls @ 75 mls/hr 08/07/23 19:44 08/07/23 21:06 5 % Dextrose In Lac Ringer's IV 0 mls/hr .[id number] JACOB Infusion Dextrose/Lactated Ringer's 1,000 mls @ 125 mls/hr 08/07/23 20:19 08/08/23 01:10 5 % Dextrose In [place] Ringer[place] IV Not Given .Q8H JACOB Piperacillin Sod/Tazobactam 100 mls @ 200 mls/hr 08/07/23 20:38 08/07/23 21:25 Sod 3.375 gm/ Sodium Chloride IVPB 08/07/23 20:39 Infused ONCE ONE Infusion Vancomycin HCl 2,000 mg/ 520 mls @ 260 mls/hr 08/07/23 20:38 08/07/23 23:35 Sodium Chloride IVPB 08/07/23 20:39 Infused ONCE ONE Infusion Protocol Dextrose 500 mls @ 75 mls/hr 08/07/23 20:45 08/08/23 01:35 10 % Dextrose 500 Ml IV Infused .[id number] JACOB Infusion Dextrose 500 mls @ 125 mls/hr 08/07/23 23:21 08/08/23 01:35 10 % Dextrose 500 Ml IV 125 mls/hr .Q4H JACOB Administration Octreotide Acetate 50 mcg 08/07/23 23:20 08/08/23 00:15 Octreotide Acetate 100 Mcg/Ml Inj IV 08/07/23 23:21 50 mcg ONCE ONE Administration Ondansetron HCl 4 mg 08/08/23 00:11 08/08/23 00:23 Ondansetron 2 Mg/Ml Inj IVP 08/08/23 00:12 4 mg ONCE ONE Administration <Gaurav Cedeño, DO - Last Filed: 08/08/23 00:33> Discontinued Medications Generic Name Dose Route Start Last Admin Trade Name Freq PRN Reason Stop Dose Admin Dextrose 25 gm 08/07/23 18:51 08/07/23 18:50 Dextrose 50 % Syringe IVP 08/07/23 18:52 25 gm ONCE ONE Administration Dextrose 25 gm 08/07/23 19:43 08/07/23 19:49 Dextrose 50 % Syringe IVP 08/07/23 19:44 25 gm ONCE ONE Administration Dextrose 25 gm 08/07/23 20:37 08/07/23 20:47 Dextrose 50 % Syringe IVP 08/07/23 20:38 25 gm ONCE ONE Administration Dextrose 25 gm 08/07/23 23:39 08/07/23 23:48 Dextrose 50 % Syringe IVP 08/07/23 23:40 25 gm ONCE ONE Administration Dextrose 25 gm 08/07/23 23:40 08/07/23 22:08 Dextrose 50 % Syringe IVP 08/07/23 23:41 25 gm ONCE ONE Administration Dextrose/Lactated Ringer's 1,000 mls @ 75 mls/hr 08/07/23 19:44 08/07/23 21:06 5 % Dextrose In [place] Ringer's IV 0 mls/hr .[id number] JACOB Infusion Dextrose/Lactated Ringer's 1,000 mls @ 125 mls/hr 08/07/23 20:19 08/08/23 01:10 5 % Dextrose In [place] Ringer's IV Not Given .Q8H JACOB Piperacillin Sod/Tazobactam 100 mls @ 200 mls/hr 08/07/23 20:38 08/07/23 21:25 Sod 3.375 gm/ Sodium Chloride IVPB 08/07/23 20:39 Infused ONCE ONE Infusion Vancomycin HCl 2,000 mg/ 520 mls @ 260 mls/hr 08/07/23 20:38 08/07/23 23:35 Sodium Chloride IVPB 08/07/23 20:39 Infused ONCE ONE Infusion Protocol Dextrose 500 mls @ 75 mls/hr 08/07/23 20:45 08/08/23 01:35 10 % Dextrose 500 Ml IV Infused .Q6H40M JACOB Infusion Dextrose 500 mls @ 125 mls/hr 08/07/23 23:21 08/08/23 01:35 10 % Dextrose 500 Ml IV 125 mls/hr .Q4H JACOB Administration Octreotide Acetate 50 mcg 08/07/23 23:20 08/08/23 00:15 Octreotide Acetate 100 Mcg/Ml Inj IV 08/07/23 23:21 50 mcg ONCE ONE Administration Ondansetron HCl 4 mg 08/08/23 00:11 08/08/23 00:23 Ondansetron 2 Mg/Ml Inj IVP 08/08/23 00:12 4 mg ONCE ONE Administration <Dk Meehan MD - Last Filed: 08/15/23 20:02> Medical Decision Making MDM Narrative Medical decision making narrative: Patient is a 57-year-old male signed out to me pending transfer expected to [facility]. I was able to talk to Dr. Joy of [facility] general surgery. She does not think this patient is requiring emergent transfer at this time and states anything they would do at [facility] we would just be able to do here in our hospital. I explained that we are very small Hospital who cannot manage this medically complex patient. She was agreeable to have him put on the wait list for transfer as they are currently on divert. I then spoke to Dr. Law the teasel gig operator who was aware of the patient from his previous [facility] visit. She is not sure why he is having these blood unstable blood sugars. She was unable to give me further direction on how to better treat this. Next I spoke to Dr. Morris also of the [facility] and is agreeable that this patient does meet criteria for transfer but states he cannot accept transfer because they are on on divert and does not have any beds. Recommends we call around to look for placement at this time. I did spoke to Dr. Krishnan of [place]. She is the hospitalist. She is agreeable that this patient needs to be transferred because of his medical complexity but believes he may need ICU at this time. I spoke to the ICU provider, Dr. Freeman, who agrees this patient needs ICU at this time. They will be a 48 hour wait at this time before they can accept for transfer. She does recommend trying octreotide to try and stabilize his blood sugars. She says being call back if we are able to get his blood sugars stabilize over a couple hour span. At that point he would be able to go to the floor. While we are waiting on that we also spoke to [facility]. I spoke to their hospitalist Dr. Roman and he does agree that the patient needs transferred but would like to speak to their surgeon to see if they could handle this patient's surgical complexity. Dr. De Oliveira, the surgeon on-call, believes the patient is too complex for their hospital. Throughout this time the patient continued to have difficulties managing his blood sugar. I went and spoke to the patient again and he specifically states he took his short-acting insulin last at noon. At this point he states he does not know for certain how much she took but he is almost positive it was the right amount her his glucometer. His states she checked his long-acting insulin and it is the correct amount and is positive he did not take any long-acting since last night. Patient does have a doctor, but states it has not worked for a while so he is back to using his glucometer. Patient will be likely transferred to [facility]. Patient signed out to Dr. Meehan pending likely transfer. <Gaurav Cedeño DO - Last Filed: 08/08/23 00:33> Lab Data Lab results reviewed: Yes I reviewed the patient's lab results <Lexie Colvin MD - Last Filed: 08/07/23 21:14> Labs: Lab Results 08/07/23 08/07/23 08/07/23 Range/Units 18:50 18:54 19:08 WBC 10.45 (4.50-11.00) K/uL RBC 2.98 L (4.30-5.90) m/uL Hgb 8.2 L (13.5-17.5) gm/dL Hct 29.4 L (37.0-53.0) % MCV 99 (80-100) fL MCH 28 (26-34) pg MCHC 28 L (32-36) gm/dL RDW Coeff of Feliciano 18.6 H (11.5-15.5) % Plt Count 445 H (140-440) K/uL Neut % (Auto) 81.0 H (42.0-72.0) % Lymph % (Auto) 6.8 L (20-44) % [place] % (Auto) 10.6 (0.0-11.0) % Eos % (Auto) 0.9 (0.0-7.0) % Baso % (Auto) 0.4 (0.0-3.0) % Neut # (Auto) 8.50 H (1.7-7.0) K/uL Lymph # (Auto) 0.70 L (0.90-2.90) K/uL [place] # (Auto) 1.10 H (0.00-0.90) K/UL Eos # (Auto) 0.09 (0.00-0.50) K/uL Baso # (Auto) 0.04 (0.00-0.30) K/uL Abs Immat Gran (auto) 0.03 (0.00-0.30) K/uL Imm/Tot Granulo (auto) 0.3 % INR (0.91-1.10) APTT 41 H (23-33) Seconds VBG pH 7.365 (7.32-7.43) VBG pCO2 44 (40-50) mmHG VBG pO2 51.6 H (25-47) mmHG VBG HCO3 25 (21-28) mmol/L Sodium 133 L (135-149) mmol/L Potassium 4.0 (3.6-5.1) mmol/L Chloride 104 (96-114) mmol/L Carbon Dioxide 20 (20-32) mmol/L Anion Gap 9 (7-15) mEq/L BUN 5 L (7-30) mg/dL Creatinine 0.3 L (0.5-1.5) mg/dL Estimated GFR 140 ml/min Glucose 39 L* (60-115) mg/dL Lactate 3.1 H (0.5-1.9) mmol/L Calcium 7.6 L (8.4-10.6) mg/dL Ionized Calcium Devin 1.13 (1.11-1.30) mmol/L Magnesium 2.2 (1.5-2.6) mg/dL Total Bilirubin 0.6 (0.1-1.5) mg/dL Direct Bilirubin 0.3 (0.0-0.5) mg/dL AST 46 H (12-35) U/L ALT 22 (4-50) U/L Alkaline Phosphatase 978 H (40-150) U/L Ammonia 22.0 (13.1-30.0) umol/L Troponin I 0.01 (0.01-0.04) ng/mL NT-Pro-B Natriuret Pep 443 pg/mL Total Protein 6.6 (6.0-8.3) g/dL Albumin 2.3 L (3.3-5.0) g/dL Procalcitonin 1.29 H (<0.50) ng/mL Urine Color (Yellow) Urine Appearance (Clear) Urine pH (5.0-8.5) Ur Specific [place] (1.000-1.030) Urine Protein (Negative) Urine Glucose (UA) (Negative) Urine Ketones (Negative) Urine Blood (Negative) Urine Nitrite (Negative) Urine Bilirubin (Negative) Urine Urobilinogen (0.2-1.0) Ur Leukocyte Esterase (Negative) Urine RBC (0-2) Urine WBC (0-5) Ur Squamous Epith Cells (None-Few) Urine Bacteria (None) Fine Granular Casts (None) Urine Opiates Screen (Negative) Ur Oxycodone Screen (Negative) Urine Methadone Screen (Negative) Ur Barbiturates Screen (Negative) U Tricyclic Antidepress (Negative) Ur Phencyclidine Scrn (Negative) Ur Amphetamines Screen (Negative) U Methamphetamines Scrn (Negative) U Benzodiazepines Scrn (Negative) Urine Cocaine Screen (Negative) U Marijuana (THC) Screen (Negative) Ur Drug Screen Comment Ethyl Alcohol < 0.01 L (0.01-0.03) % SARS-CoV-2 (PCR) (Negative) Influenza Type A (PCR) (Negative) Influenza Type B (PCR) (Negative) RSV (PCR) (Negative) Lab Acknowledgement POC Glucose 43 L* (60-115) mg/dl POC Creatinine (0.6-1.3) mg/dl 08/07/23 08/07/23 08/07/23 Range/Units 19:09 19:10 19:19 WBC (4.50-11.00) K/uL RBC (4.30-5.90) m/uL Hgb (13.5-17.5) gm/dL Hct (37.0-53.0) % MCV (80-100) fL MCH (26-34) pg MCHC (32-36) gm/dL RDW Coeff of Feliciano (11.5-15.5) % Plt Count (140-440) K/uL Neut % (Auto) (42.0-72.0) % Lymph % (Auto) (20-44) % [place] % (Auto) (0.0-11.0) % Eos % (Auto) (0.0-7.0) % Baso % (Auto) (0.0-3.0) % Neut # (Auto) (1.7-7.0) K/uL Lymph # (Auto) (0.90-2.90) K/uL [place] # (Auto) (0.00-0.90) K/UL Eos # (Auto) (0.00-0.50) K/uL Baso # (Auto) (0.00-0.30) K/uL Abs Immat Gran (auto) (0.00-0.30) K/uL Imm/Tot Granulo (auto) % INR 1.04 (0.91-1.10) APTT (23-33) Seconds VBG pH (7.32-7.43) VBG pCO2 (40-50) mmHG VBG pO2 (25-47) mmHG VBG HCO3 (21-28) mmol/L Sodium (135-149) mmol/L Potassium (3.6-5.1) mmol/L Chloride (96-114) mmol/L Carbon Dioxide (20-32) mmol/L Anion Gap (7-15) mEq/L BUN (7-30) mg/dL Creatinine (0.5-1.5) mg/dL Estimated GFR ml/min Glucose (60-115) mg/dL Lactate (0.5-1.9) mmol/L Calcium (8.4-10.6) mg/dL Ionized Calcium Devin (1.11-1.30) mmol/L Magnesium (1.5-2.6) mg/dL Total Bilirubin (0.1-1.5) mg/dL Direct Bilirubin (0.0-0.5) mg/dL AST (12-35) U/L ALT (4-50) U/L Alkaline Phosphatase (40-150) U/L Ammonia (13.1-30.0) umol/L Troponin I (0.01-0.04) ng/mL NT-Pro-B Natriuret Pep pg/mL Total Protein (6.0-8.3) g/dL Albumin (3.3-5.0) g/dL Procalcitonin (<0.50) ng/mL Urine Color (Yellow) Urine Appearance (Clear) Urine pH (5.0-8.5) Ur Specific [place] (1.000-1.030) Urine Protein (Negative) Urine Glucose (UA) (Negative) Urine Ketones (Negative) Urine Blood (Negative) Urine Nitrite (Negative) Urine Bilirubin (Negative) Urine Urobilinogen (0.2-1.0) Ur Leukocyte Esterase (Negative) Urine RBC (0-2) Urine WBC (0-5) Ur Squamous Epith Cells (None-Few) Urine Bacteria (None) Fine Granular Casts (None) Urine Opiates Screen (Negative) Ur Oxycodone Screen (Negative) Urine Methadone Screen (Negative) Ur Barbiturates Screen (Negative) U Tricyclic Antidepress (Negative) Ur Phencyclidine Scrn (Negative) Ur Amphetamines Screen (Negative) U Methamphetamines Scrn (Negative) U Benzodiazepines Scrn (Negative) Urine Cocaine Screen (Negative) U Marijuana (THC) Screen (Negative) Ur Drug Screen Comment Ethyl Alcohol (0.01-0.03) % SARS-CoV-2 (PCR) Negative SARS-CoV-2 (Negative) Influenza Type A (PCR) Negative PCR FLU A (Negative) Influenza Type B (PCR) Negative PCR FLU B (Negative) RSV (PCR) Negative PCR RSV (Negative) Lab Acknowledgement POC Glucose 89 (60-115) mg/dl POC Creatinine 0.3 L (0.6-1.3) mg/dl 08/07/23 08/07/23 08/07/23 Range/Units 19:30 19:34 19:50 WBC (4.50-11.00) K/uL RBC (4.30-5.90) m/uL Hgb (13.5-17.5) gm/dL Hct (37.0-53.0) % MCV (80-100) fL MCH (26-34) pg MCHC (32-36) gm/dL RDW Coeff of Feliciano (11.5-15.5) % Plt Count (140-440) K/uL Neut % (Auto) (42.0-72.0) % Lymph % (Auto) (20-44) % [place] % (Auto) (0.0-11.0) % Eos % (Auto) (0.0-7.0) % Baso % (Auto) (0.0-3.0) % Neut # (Auto) (1.7-7.0) K/uL Lymph # (Auto) (0.90-2.90) K/uL [place] # (Auto) (0.00-0.90) K/UL Eos # (Auto) (0.00-0.50) K/uL Baso # (Auto) (0.00-0.30) K/uL Abs Immat Gran (auto) (0.00-0.30) K/uL Imm/Tot Granulo (auto) % INR (0.91-1.10) APTT (23-33) Seconds VBG pH (7.32-7.43) VBG pCO2 (40-50) mmHG VBG pO2 (25-47) mmHG VBG HCO3 (21-28) mmol/L Sodium (135-149) mmol/L Potassium (3.6-5.1) mmol/L Chloride (96-114) mmol/L Carbon Dioxide (20-32) mmol/L Anion Gap (7-15) mEq/L BUN (7-30) mg/dL Creatinine (0.5-1.5) mg/dL Estimated GFR ml/min Glucose (60-115) mg/dL Lactate (0.5-1.9) mmol/L Calcium (8.4-10.6) mg/dL Ionized Calcium Devin (1.11-1.30) mmol/L Magnesium (1.5-2.6) mg/dL Total Bilirubin (0.1-1.5) mg/dL Direct Bilirubin (0.0-0.5) mg/dL AST (12-35) U/L ALT (4-50) U/L Alkaline Phosphatase (40-150) U/L Ammonia (13.1-30.0) umol/L Troponin I (0.01-0.04) ng/mL NT-Pro-B Natriuret Pep pg/mL Total Protein (6.0-8.3) g/dL Albumin (3.3-5.0) g/dL Procalcitonin (<0.50) ng/mL Urine Color Dark yellow (Yellow) Urine Appearance Clear (Clear) Urine pH 6.5 (5.0-8.5) Ur Specific [place] 1.010 (1.000-1.030) Urine Protein Negative (Negative) Urine Glucose (UA) Negative (Negative) Urine Ketones Negative (Negative) Urine Blood Negative (Negative) Urine Nitrite Negative (Negative) Urine Bilirubin Negative (Negative) Urine Urobilinogen 0.2 (0.2-1.0) Ur Leukocyte Esterase Negative (Negative) Urine RBC 0-2 (0-2) Urine WBC 0-2 (0-5) Ur Squamous Epith Cells Moderate A (None-Few) Urine Bacteria None (None) Fine Granular Casts Few A (None) Urine Opiates Screen Negative (Negative) Ur Oxycodone Screen POSITIVE A (Negative) Urine Methadone Screen Negative (Negative) Ur Barbiturates Screen Negative (Negative) U Tricyclic Antidepress Negative (Negative) Ur Phencyclidine Scrn Negative (Negative) Ur Amphetamines Screen Negative (Negative) U Methamphetamines Scrn Negative (Negative) U Benzodiazepines Scrn Negative (Negative) Urine Cocaine Screen Negative (Negative) U Marijuana (THC) Screen Negative (Negative) Ur Drug Screen Comment See Note Ethyl Alcohol (0.01-0.03) % SARS-CoV-2 (PCR) (Negative) Influenza Type A (PCR) (Negative) Influenza Type B (PCR) (Negative) RSV (PCR) (Negative) Lab Acknowledgement Test Added POC Glucose 55 L (60-115) mg/dl POC Creatinine (0.6-1.3) mg/dl 08/07/23 08/07/23 08/07/23 Range/Units 20:03 20:13 23:08 WBC (4.50-11.00) K/uL RBC (4.30-5.90) m/uL Hgb (13.5-17.5) gm/dL Hct (37.0-53.0) % MCV (80-100) fL MCH (26-34) pg MCHC (32-36) gm/dL RDW Coeff of Feliciano (11.5-15.5) % Plt Count (140-440) K/uL Neut % (Auto) (42.0-72.0) % Lymph % (Auto) (20-44) % [place] % (Auto) (0.0-11.0) % Eos % (Auto) (0.0-7.0) % Baso % (Auto) (0.0-3.0) % Neut # (Auto) (1.7-7.0) K/uL Lymph # (Auto) (0.90-2.90) K/uL [place] # (Auto) (0.00-0.90) K/UL Eos # (Auto) (0.00-0.50) K/uL Baso # (Auto) (0.00-0.30) K/uL Abs Immat Gran (auto) (0.00-0.30) K/uL Imm/Tot Granulo (auto) % INR (0.91-1.10) APTT (23-33) Seconds VBG pH (7.32-7.43) VBG pCO2 (40-50) mmHG VBG pO2 (25-47) mmHG VBG HCO3 (21-28) mmol/L Sodium (135-149) mmol/L Potassium (3.6-5.1) mmol/L Chloride (96-114) mmol/L Carbon Dioxide (20-32) mmol/L Anion Gap (7-15) mEq/L BUN (7-30) mg/dL Creatinine (0.5-1.5) mg/dL Estimated GFR ml/min Glucose (60-115) mg/dL Lactate 2.5 H (0.5-1.9) mmol/L Calcium (8.4-10.6) mg/dL Ionized Calcium Devin (1.11-1.30) mmol/L Magnesium (1.5-2.6) mg/dL Total Bilirubin (0.1-1.5) mg/dL Direct Bilirubin (0.0-0.5) mg/dL AST (12-35) U/L ALT (4-50) U/L Alkaline Phosphatase (40-150) U/L Ammonia (13.1-30.0) umol/L Troponin I (0.01-0.04) ng/mL NT-Pro-B Natriuret Pep pg/mL Total Protein (6.0-8.3) g/dL Albumin (3.3-5.0) g/dL Procalcitonin (<0.50) ng/mL Urine Color (Yellow) Urine Appearance (Clear) Urine pH (5.0-8.5) Ur Specific [place] (1.000-1.030) Urine Protein (Negative) Urine Glucose (UA) (Negative) Urine Ketones (Negative) Urine Blood (Negative) Urine Nitrite (Negative) Urine Bilirubin (Negative) Urine Urobilinogen (0.2-1.0) Ur Leukocyte Esterase (Negative) Urine RBC (0-2) Urine WBC (0-5) Ur Squamous Epith Cells (None-Few) Urine Bacteria (None) Fine Granular Casts (None) Urine Opiates Screen (Negative) Ur Oxycodone Screen (Negative) Urine Methadone Screen (Negative) Ur Barbiturates Screen (Negative) U Tricyclic Antidepress (Negative) Ur Phencyclidine Scrn (Negative) Ur Amphetamines Screen (Negative) U Methamphetamines Scrn (Negative) U Benzodiazepines Scrn (Negative) Urine Cocaine Screen (Negative) U Marijuana (THC) Screen (Negative) Ur Drug Screen Comment Ethyl Alcohol (0.01-0.03) % SARS-CoV-2 (PCR) (Negative) Influenza Type A (PCR) (Negative) Influenza Type B (PCR) (Negative) RSV (PCR) (Negative) Lab Acknowledgement Test Added POC Glucose 129 H (60-115) mg/dl POC Creatinine (0.6-1.3) mg/dl <Lexie Colvin MD - Last Filed: 08/07/23 21:14> Lab Results 08/07/23 08/07/23 08/07/23 Range/Units 18:50 18:54 19:08 WBC 10.45 (4.50-11.00) K/uL RBC 2.98 L (4.30-5.90) m/uL Hgb 8.2 L (13.5-17.5) gm/dL Hct 29.4 L (37.0-53.0) % MCV 99 (80-100) fL MCH 28 (26-34) pg MCHC 28 L (32-36) gm/dL RDW Coeff of Feliciano 18.6 H (11.5-15.5) % Plt Count 445 H (140-440) K/uL Neut % (Auto) 81.0 H (42.0-72.0) % Lymph % (Auto) 6.8 L (20-44) % [place] % (Auto) 10.6 (0.0-11.0) % Eos % (Auto) 0.9 (0.0-7.0) % Baso % (Auto) 0.4 (0.0-3.0) % Neut # (Auto) 8.50 H (1.7-7.0) K/uL Lymph # (Auto) 0.70 L (0.90-2.90) K/uL [place] # (Auto) 1.10 H (0.00-0.90) K/UL Eos # (Auto) 0.09 (0.00-0.50) K/uL Baso # (Auto) 0.04 (0.00-0.30) K/uL Abs Immat Gran (auto) 0.03 (0.00-0.30) K/uL Imm/Tot Granulo (auto) 0.3 % INR (0.91-1.10) APTT 41 H (23-33) Seconds VBG pH 7.365 (7.32-7.43) VBG pCO2 44 (40-50) mmHG VBG pO2 51.6 H (25-47) mmHG VBG HCO3 25 (21-28) mmol/L Sodium 133 L (135-149) mmol/L Potassium 4.0 (3.6-5.1) mmol/L Chloride 104 (96-114) mmol/L Carbon Dioxide 20 (20-32) mmol/L Anion Gap 9 (7-15) mEq/L BUN 5 L (7-30) mg/dL Creatinine 0.3 L (0.5-1.5) mg/dL Estimated GFR 140 ml/min Glucose 39 L* (60-115) mg/dL Lactate 3.1 H (0.5-1.9) mmol/L Calcium 7.6 L (8.4-10.6) mg/dL Ionized Calcium Devin 1.13 (1.11-1.30) mmol/L Magnesium 2.2 (1.5-2.6) mg/dL Total Bilirubin 0.6 (0.1-1.5) mg/dL Direct Bilirubin 0.3 (0.0-0.5) mg/dL AST 46 H (12-35) U/L ALT 22 (4-50) U/L Alkaline Phosphatase 978 H (40-150) U/L Ammonia 22.0 (13.1-30.0) umol/L Troponin I 0.01 (0.01-0.04) ng/mL NT-Pro-B Natriuret Pep 443 pg/mL Total Protein 6.6 (6.0-8.3) g/dL Albumin 2.3 L (3.3-5.0) g/dL Procalcitonin 1.29 H (<0.50) ng/mL Urine Color (Yellow) Urine Appearance (Clear) Urine pH (5.0-8.5) Ur Specific [place] (1.000-1.030) Urine Protein (Negative) Urine Glucose (UA) (Negative) Urine Ketones (Negative) Urine Blood (Negative) Urine Nitrite (Negative) Urine Bilirubin (Negative) Urine Urobilinogen (0.2-1.0) Ur Leukocyte Esterase (Negative) Urine RBC (0-2) Urine WBC (0-5) Ur Squamous Epith Cells (None-Few) Urine Bacteria (None) Fine Granular Casts (None) Urine Opiates Screen (Negative) Ur Oxycodone Screen (Negative) Urine Methadone Screen (Negative) Ur Barbiturates Screen (Negative) U Tricyclic Antidepress (Negative) Ur Phencyclidine Scrn (Negative) Ur Amphetamines Screen (Negative) U Methamphetamines Scrn (Negative) U Benzodiazepines Scrn (Negative) Urine Cocaine Screen (Negative) U Marijuana (THC) Screen (Negative) Ur Drug Screen Comment Ethyl Alcohol < 0.01 L (0.01-0.03) % SARS-CoV-2 (PCR) (Negative) Influenza Type A (PCR) (Negative) Influenza Type B (PCR) (Negative) RSV (PCR) (Negative) Lab Acknowledgement POC Glucose 43 L* (60-115) mg/dl POC Creatinine (0.6-1.3) mg/dl 08/07/23 08/07/23 08/07/23 Range/Units 19:09 19:10 19:19 WBC (4.50-11.00) K/uL RBC (4.30-5.90) m/uL Hgb (13.5-17.5) gm/dL Hct (37.0-53.0) % MCV (80-100) fL MCH (26-34) pg MCHC (32-36) gm/dL RDW Coeff of Feliciano (11.5-15.5) % Plt Count (140-440) K/uL Neut % (Auto) (42.0-72.0) % Lymph % (Auto) (20-44) % [place] % (Auto) (0.0-11.0) % Eos % (Auto) (0.0-7.0) % Baso % (Auto) (0.0-3.0) % Neut # (Auto) (1.7-7.0) K/uL Lymph # (Auto) (0.90-2.90) K/uL [place] # (Auto) (0.00-0.90) K/UL Eos # (Auto) (0.00-0.50) K/uL Baso # (Auto) (0.00-0.30) K/uL Abs Immat Gran (auto) (0.00-0.30) K/uL Imm/Tot Granulo (auto) % INR 1.04 (0.91-1.10) APTT (23-33) Seconds VBG pH (7.32-7.43) VBG pCO2 (40-50) mmHG VBG pO2 (25-47) mmHG VBG HCO3 (21-28) mmol/L Sodium (135-149) mmol/L Potassium (3.6-5.1) mmol/L Chloride (96-114) mmol/L Carbon Dioxide (20-32) mmol/L Anion Gap (7-15) mEq/L BUN (7-30) mg/dL Creatinine (0.5-1.5) mg/dL Estimated GFR ml/min Glucose (60-115) mg/dL Lactate (0.5-1.9) mmol/L Calcium (8.4-10.6) mg/dL Ionized Calcium Devin (1.11-1.30) mmol/L Magnesium (1.5-2.6) mg/dL Total Bilirubin (0.1-1.5) mg/dL Direct Bilirubin (0.0-0.5) mg/dL AST (12-35) U/L ALT (4-50) U/L Alkaline Phosphatase (40-150) U/L Ammonia (13.1-30.0) umol/L Troponin I (0.01-0.04) ng/mL NT-Pro-B Natriuret Pep pg/mL Total Protein (6.0-8.3) g/dL Albumin (3.3-5.0) g/dL Procalcitonin (<0.50) ng/mL Urine Color (Yellow) Urine Appearance (Clear) Urine pH (5.0-8.5) Ur Specific [place] (1.000-1.030) Urine Protein (Negative) Urine Glucose (UA) (Negative) Urine Ketones (Negative) Urine Blood (Negative) Urine Nitrite (Negative) Urine Bilirubin (Negative) Urine Urobilinogen (0.2-1.0) Ur Leukocyte Esterase (Negative) Urine RBC (0-2) Urine WBC (0-5) Ur Squamous Epith Cells (None-Few) Urine Bacteria (None) Fine Granular Casts (None) Urine Opiates Screen (Negative) Ur Oxycodone Screen (Negative) Urine Methadone Screen (Negative) Ur Barbiturates Screen (Negative) U Tricyclic Antidepress (Negative) Ur Phencyclidine Scrn (Negative) Ur Amphetamines Screen (Negative) U Methamphetamines Scrn (Negative) U Benzodiazepines Scrn (Negative) Urine Cocaine Screen (Negative) U Marijuana (THC) Screen (Negative) Ur Drug Screen Comment Ethyl Alcohol (0.01-0.03) % SARS-CoV-2 (PCR) Negative SARS-CoV-2 (Negative) Influenza Type A (PCR) Negative PCR FLU A (Negative) Influenza Type B (PCR) Negative PCR FLU B (Negative) RSV (PCR) Negative PCR RSV (Negative) Lab Acknowledgement POC Glucose 89 (60-115) mg/dl POC Creatinine 0.3 L (0.6-1.3) mg/dl 08/07/23 08/07/23 08/07/23 Range/Units 19:30 19:34 19:50 WBC (4.50-11.00) K/uL RBC (4.30-5.90) m/uL Hgb (13.5-17.5) gm/dL Hct (37.0-53.0) % MCV (80-100) fL MCH (26-34) pg MCHC (32-36) gm/dL RDW Coeff of [place] (11.5-15.5) % Plt Count (140-440) K/uL Neut % (Auto) (42.0-72.0) % Lymph % (Auto) (20-44) % [place] % (Auto) (0.0-11.0) % Eos % (Auto) (0.0-7.0) % Baso % (Auto) (0.0-3.0) % Neut # (Auto) (1.7-7.0) K/uL Lymph # (Auto) (0.90-2.90) K/uL [place] # (Auto) (0.00-0.90) K/UL Eos # (Auto) (0.00-0.50) K/uL Baso # (Auto) (0.00-0.30) K/uL Abs Immat Gran (auto) (0.00-0.30) K/uL Imm/Tot Granulo (auto) % INR (0.91-1.10) APTT (23-33) Seconds VBG pH (7.32-7.43) VBG pCO2 (40-50) mmHG VBG pO2 (25-47) mmHG VBG HCO3 (21-28) mmol/L Sodium (135-149) mmol/L Potassium (3.6-5.1) mmol/L Chloride (96-114) mmol/L Carbon Dioxide (20-32) mmol/L Anion Gap (7-15) mEq/L BUN (7-30) mg/dL Creatinine (0.5-1.5) mg/dL Estimated GFR ml/min Glucose (60-115) mg/dL Lactate (0.5-1.9) mmol/L Calcium (8.4-10.6) mg/dL Ionized Calcium Devin (1.11-1.30) mmol/L Magnesium (1.5-2.6) mg/dL Total Bilirubin (0.1-1.5) mg/dL Direct Bilirubin (0.0-0.5) mg/dL AST (12-35) U/L ALT (4-50) U/L Alkaline Phosphatase (40-150) U/L Ammonia (13.1-30.0) umol/L Troponin I (0.01-0.04) ng/mL NT-Pro-B Natriuret Pep pg/mL Total Protein (6.0-8.3) g/dL Albumin (3.3-5.0) g/dL Procalcitonin (<0.50) ng/mL Urine Color Dark yellow (Yellow) Urine Appearance Clear (Clear) Urine pH 6.5 (5.0-8.5) Ur Specific [place] 1.010 (1.000-1.030) Urine Protein Negative (Negative) Urine Glucose (UA) Negative (Negative) Urine Ketones Negative (Negative) Urine Blood Negative (Negative) Urine Nitrite Negative (Negative) Urine Bilirubin Negative (Negative) Urine Urobilinogen 0.2 (0.2-1.0) Ur Leukocyte Esterase Negative (Negative) Urine RBC 0-2 (0-2) Urine WBC 0-2 (0-5) Ur Squamous Epith Cells Moderate A (None-Few) Urine Bacteria None (None) Fine Granular Casts Few A (None) Urine Opiates Screen Negative (Negative) Ur Oxycodone Screen POSITIVE A (Negative) Urine Methadone Screen Negative (Negative) Ur Barbiturates Screen Negative (Negative) U Tricyclic Antidepress Negative (Negative) Ur Phencyclidine Scrn Negative (Negative) Ur Amphetamines Screen Negative (Negative) U Methamphetamines Scrn Negative (Negative) U Benzodiazepines Scrn Negative (Negative) Urine Cocaine Screen Negative (Negative) U Marijuana (THC) Screen Negative (Negative) Ur Drug Screen Comment See Note Ethyl Alcohol (0.01-0.03) % SARS-CoV-2 (PCR) (Negative) Influenza Type A (PCR) (Negative) Influenza Type B (PCR) (Negative) RSV (PCR) (Negative) Lab Acknowledgement Test Added POC Glucose 55 L (60-115) mg/dl POC Creatinine (0.6-1.3) mg/dl 08/07/23 08/07/23 08/07/23 Range/Units 20:03 20:13 23:08 WBC (4.50-11.00) K/uL RBC (4.30-5.90) m/uL Hgb (13.5-17.5) gm/dL Hct (37.0-53.0) % MCV (80-100) fL MCH (26-34) pg MCHC (32-36) gm/dL RDW Coeff of [place] (11.5-15.5) % Plt Count (140-440) K/uL Neut % (Auto) (42.0-72.0) % Lymph % (Auto) (20-44) % [place] % (Auto) (0.0-11.0) % Eos % (Auto) (0.0-7.0) % Baso % (Auto) (0.0-3.0) % Neut # (Auto) (1.7-7.0) K/uL Lymph # (Auto) (0.90-2.90) K/uL [place] # (Auto) (0.00-0.90) K/UL Eos # (Auto) (0.00-0.50) K/uL Baso # (Auto) (0.00-0.30) K/uL Abs Immat Gran (auto) (0.00-0.30) K/uL Imm/Tot Granulo (auto) % INR (0.91-1.10) APTT (23-33) Seconds VBG pH (7.32-7.43) VBG pCO2 (40-50) mmHG VBG pO2 (25-47) mmHG VBG HCO3 (21-28) mmol/L Sodium (135-149) mmol/L Potassium (3.6-5.1) mmol/L Chloride (96-114) mmol/L Carbon Dioxide (20-32) mmol/L Anion Gap (7-15) mEq/L BUN (7-30) mg/dL Creatinine (0.5-1.5) mg/dL Estimated GFR ml/min Glucose (60-115) mg/dL Lactate 2.5 H (0.5-1.9) mmol/L Calcium (8.4-10.6) mg/dL Ionized Calcium Devin (1.11-1.30) mmol/L Magnesium (1.5-2.6) mg/dL Total Bilirubin (0.1-1.5) mg/dL Direct Bilirubin (0.0-0.5) mg/dL AST (12-35) U/L ALT (4-50) U/L Alkaline Phosphatase (40-150) U/L Ammonia (13.1-30.0) umol/L Troponin I (0.01-0.04) ng/mL NT-Pro-B Natriuret Pep pg/mL Total Protein (6.0-8.3) g/dL Albumin (3.3-5.0) g/dL Procalcitonin (<0.50) ng/mL Urine Color (Yellow) Urine Appearance (Clear) Urine pH (5.0-8.5) Ur Specific [place] (1.000-1.030) Urine Protein (Negative) Urine Glucose (UA) (Negative) Urine Ketones (Negative) Urine Blood (Negative) Urine Nitrite (Negative) Urine Bilirubin (Negative) Urine Urobilinogen (0.2-1.0) Ur Leukocyte Esterase (Negative) Urine RBC (0-2) Urine WBC (0-5) Ur Squamous Epith Cells (None-Few) Urine Bacteria (None) Fine Granular Casts (None) Urine Opiates Screen (Negative) Ur Oxycodone Screen (Negative) Urine Methadone Screen (Negative) Ur Barbiturates Screen (Negative) U Tricyclic Antidepress (Negative) Ur Phencyclidine Scrn (Negative) Ur Amphetamines Screen (Negative) U Methamphetamines Scrn (Negative) U Benzodiazepines Scrn (Negative) Urine Cocaine Screen (Negative) U Marijuana (THC) Screen (Negative) Ur Drug Screen Comment Ethyl Alcohol (0.01-0.03) % SARS-CoV-2 (PCR) (Negative) Influenza Type A (PCR) (Negative) Influenza Type B (PCR) (Negative) RSV (PCR) (Negative) Lab Acknowledgement Test Added POC Glucose 129 H (60-115) mg/dl POC Creatinine (0.6-1.3) mg/dl <Gaurav Cedeño, DO - Last Filed: 08/08/23 00:33> Lab Results 08/07/23 08/07/23 08/07/23 Range/Units 18:50 18:54 19:08 WBC 10.45 (4.50-11.00) K/uL RBC 2.98 L (4.30-5.90) m/uL Hgb 8.2 L (13.5-17.5) gm/dL Hct 29.4 L (37.0-53.0) % MCV 99 (80-100) fL MCH 28 (26-34) pg MCHC 28 L (32-36) gm/dL RDW Coeff of Feliciano 18.6 H (11.5-15.5) % Plt Count 445 H (140-440) K/uL Neut % (Auto) 81.0 H (42.0-72.0) % Lymph % (Auto) 6.8 L (20-44) % [place] % (Auto) 10.6 (0.0-11.0) % Eos % (Auto) 0.9 (0.0-7.0) % Baso % (Auto) 0.4 (0.0-3.0) % Neut # (Auto) 8.50 H (1.7-7.0) K/uL Lymph # (Auto) 0.70 L (0.90-2.90) K/uL [place] # (Auto) 1.10 H (0.00-0.90) K/UL Eos # (Auto) 0.09 (0.00-0.50) K/uL Baso # (Auto) 0.04 (0.00-0.30) K/uL Abs Immat Gran (auto) 0.03 (0.00-0.30) K/uL Imm/Tot Granulo (auto) 0.3 % INR (0.91-1.10) APTT 41 H (23-33) Seconds VBG pH 7.365 (7.32-7.43) VBG pCO2 44 (40-50) mmHG VBG pO2 51.6 H (25-47) mmHG VBG HCO3 25 (21-28) mmol/L Sodium 133 L (135-149) mmol/L Potassium 4.0 (3.6-5.1) mmol/L Chloride 104 (96-114) mmol/L Carbon Dioxide 20 (20-32) mmol/L Anion Gap 9 (7-15) mEq/L BUN 5 L (7-30) mg/dL Creatinine 0.3 L (0.5-1.5) mg/dL Estimated GFR 140 ml/min Glucose 39 L* (60-115) mg/dL Lactate 3.1 H (0.5-1.9) mmol/L Calcium 7.6 L (8.4-10.6) mg/dL Ionized Calcium Devin 1.13 (1.11-1.30) mmol/L Magnesium 2.2 (1.5-2.6) mg/dL Total Bilirubin 0.6 (0.1-1.5) mg/dL Direct Bilirubin 0.3 (0.0-0.5) mg/dL AST 46 H (12-35) U/L ALT 22 (4-50) U/L Alkaline Phosphatase 978 H (40-150) U/L Ammonia 22.0 (13.1-30.0) umol/L Troponin I 0.01 (0.01-0.04) ng/mL NT-Pro-B Natriuret Pep 443 pg/mL Total Protein 6.6 (6.0-8.3) g/dL Albumin 2.3 L (3.3-5.0) g/dL Procalcitonin 1.29 H (<0.50) ng/mL Urine Color (Yellow) Urine Appearance (Clear) Urine pH (5.0-8.5) Ur Specific [place] (1.000-1.030) Urine Protein (Negative) Urine Glucose (UA) (Negative) Urine Ketones (Negative) Urine Blood (Negative) Urine Nitrite (Negative) Urine Bilirubin (Negative) Urine Urobilinogen (0.2-1.0) Ur Leukocyte Esterase (Negative) Urine RBC (0-2) Urine WBC (0-5) Ur Squamous Epith Cells (None-Few) Urine Bacteria (None) Fine Granular Casts (None) Urine Opiates Screen (Negative) Ur Oxycodone Screen (Negative) Urine Methadone Screen (Negative) Ur Barbiturates Screen (Negative) U Tricyclic Antidepress (Negative) Ur Phencyclidine Scrn (Negative) Ur Amphetamines Screen (Negative) U Methamphetamines Scrn (Negative) U Benzodiazepines Scrn (Negative) Urine Cocaine Screen (Negative) U Marijuana (THC) Screen (Negative) Ur Drug Screen Comment Ethyl Alcohol < 0.01 L (0.01-0.03) % SARS-CoV-2 (PCR) (Negative) Influenza Type A (PCR) (Negative) Influenza Type B (PCR) (Negative) RSV (PCR) (Negative) Lab Acknowledgement POC Glucose 43 L* (60-115) mg/dl POC Creatinine (0.6-1.3) mg/dl 08/07/23 08/07/23 08/07/23 Range/Units 19:09 19:10 19:19 WBC (4.50-11.00) K/uL RBC (4.30-5.90) m/uL Hgb (13.5-17.5) gm/dL Hct (37.0-53.0) % MCV (80-100) fL MCH (26-34) pg MCHC (32-36) gm/dL RDW Coeff of [place]ician[place] (11.5-15.5) % Plt Count (140-440) K/uL Neut % (Auto) (42.0-72.0) % Lymph % (Auto) (20-44) % [place] % (Auto) (0.0-11.0) % Eos % (Auto) (0.0-7.0) % Baso % (Auto) (0.0-3.0) % Neut # (Auto) (1.7-7.0) K/uL Lymph # (Auto) (0.90-2.90) K/uL [place] # (Auto) (0.00-0.90) K/UL Eos # (Auto) (0.00-0.50) K/uL Baso # (Auto) (0.00-0.30) K/uL Abs Immat Gran (auto) (0.00-0.30) K/uL Imm/Tot Granulo (auto) % INR 1.04 (0.91-1.10) APTT (23-33) Seconds VBG pH (7.32-7.43) VBG pCO2 (40-50) mmHG VBG pO2 (25-47) mmHG VBG HCO3 (21-28) mmol/L Sodium (135-149) mmol/L Potassium (3.6-5.1) mmol/L Chloride (96-114) mmol/L Carbon Dioxide (20-32) mmol/L Anion Gap (7-15) mEq/L BUN (7-30) mg/dL Creatinine (0.5-1.5) mg/dL Estimated GFR ml/min Glucose (60-115) mg/dL Lactate (0.5-1.9) mmol/L Calcium (8.4-10.6) mg/dL Ionized Calcium Devin (1.11-1.30) mmol/L Magnesium (1.5-2.6) mg/dL Total Bilirubin (0.1-1.5) mg/dL Direct Bilirubin (0.0-0.5) mg/dL AST (12-35) U/L ALT (4-50) U/L Alkaline Phosphatase (40-150) U/L Ammonia (13.1-30.0) umol/L Troponin I (0.01-0.04) ng/mL NT-Pro-B Natriuret Pep pg/mL Total Protein (6.0-8.3) g/dL Albumin (3.3-5.0) g/dL Procalcitonin (<0.50) ng/mL Urine Color (Yellow) Urine Appearance (Clear) Urine pH (5.0-8.5) Ur Specific [place] (1.000-1.030) Urine Protein (Negative) Urine Glucose (UA) (Negative) Urine Ketones (Negative) Urine Blood (Negative) Urine Nitrite (Negative) Urine Bilirubin (Negative) Urine Urobilinogen (0.2-1.0) Ur Leukocyte Esterase (Negative) Urine RBC (0-2) Urine WBC (0-5) Ur Squamous Epith Cells (None-Few) Urine Bacteria (None) Fine Granular Casts (None) Urine Opiates Screen (Negative) Ur Oxycodone Screen (Negative) Urine Methadone Screen (Negative) Ur Barbiturates Screen (Negative) U Tricyclic Antidepress (Negative) Ur Phencyclidine Scrn (Negative) Ur Amphetamines Screen (Negative) U Methamphetamines Scrn (Negative) U Benzodiazepines Scrn (Negative) Urine Cocaine Screen (Negative) U Marijuana (THC) Screen (Negative) Ur Drug Screen Comment Ethyl Alcohol (0.01-0.03) % SARS-CoV-2 (PCR) Negative SARS-CoV-2 (Negative) Influenza Type A (PCR) Negative PCR FLU A (Negative) Influenza Type B (PCR) Negative PCR FLU B (Negative) RSV (PCR) Negative PCR RSV (Negative) Lab Acknowledgement POC Glucose 89 (60-115) mg/dl POC Creatinine 0.3 L (0.6-1.3) mg/dl 08/07/23 08/07/23 08/07/23 Range/Units 19:30 19:34 19:50 WBC (4.50-11.00) K/uL RBC (4.30-5.90) m/uL Hgb (13.5-17.5) gm/dL Hct (37.0-53.0) % MCV (80-100) fL MCH (26-34) pg MCHC (32-36) gm/dL RDW Coeff of [place] (11.5-15.5) % Plt Count (140-440) K/uL Neut % (Auto) (42.0-72.0) % Lymph % (Auto) (20-44) % [place] % (Auto) (0.0-11.0) % Eos % (Auto) (0.0-7.0) % Baso % (Auto) (0.0-3.0) % Neut # (Auto) (1.7-7.0) K/uL Lymph # (Auto) (0.90-2.90) K/uL [place] # (Auto) (0.00-0.90) K/UL Eos # (Auto) (0.00-0.50) K/uL Baso # (Auto) (0.00-0.30) K/uL Abs Immat Gran (auto) (0.00-0.30) K/uL Imm/Tot Granulo (auto) % INR (0.91-1.10) APTT (23-33) Seconds VBG pH (7.32-7.43) VBG pCO2 (40-50) mmHG VBG pO2 (25-47) mmHG VBG HCO3 (21-28) mmol/L Sodium (135-149) mmol/L Potassium (3.6-5.1) mmol/L Chloride (96-114) mmol/L Carbon Dioxide (20-32) mmol/L Anion Gap (7-15) mEq/L BUN (7-30) mg/dL Creatinine (0.5-1.5) mg/dL Estimated GFR ml/min Glucose (60-115) mg/dL Lactate (0.5-1.9) mmol/L Calcium (8.4-10.6) mg/dL Ionized Calcium Devin (1.11-1.30) mmol/L Magnesium (1.5-2.6) mg/dL Total Bilirubin (0.1-1.5) mg/dL Direct Bilirubin (0.0-0.5) mg/dL AST (12-35) U/L ALT (4-50) U/L Alkaline Phosphatase (40-150) U/L Ammonia (13.1-30.0) umol/L Troponin I (0.01-0.04) ng/mL NT-Pro-B Natriuret Pep pg/mL Total Protein (6.0-8.3) g/dL Albumin (3.3-5.0) g/dL Procalcitonin (<0.50) ng/mL Urine Color Dark yellow (Yellow) Urine Appearance Clear (Clear) Urine pH 6.5 (5.0-8.5) Ur Specific [place] 1.010 (1.000-1.030) Urine Protein Negative (Negative) Urine Glucose (UA) Negative (Negative) Urine Ketones Negative (Negative) Urine Blood Negative (Negative) Urine Nitrite Negative (Negative) Urine Bilirubin Negative (Negative) Urine Urobilinogen 0.2 (0.2-1.0) Ur Leukocyte Esterase Negative (Negative) Urine RBC 0-2 (0-2) Urine WBC 0-2 (0-5) Ur Squamous Epith Cells Moderate A (None-Few) Urine Bacteria None (None) Fine Granular Casts Few A (None) Urine Opiates Screen Negative (Negative) Ur Oxycodone Screen POSITIVE A (Negative) Urine Methadone Screen Negative (Negative) Ur Barbiturates Screen Negative (Negative) U Tricyclic Antidepress Negative (Negative) Ur Phencyclidine Scrn Negative (Negative) Ur Amphetamines Screen Negative (Negative) U Methamphetamines Scrn Negative (Negative) U Benzodiazepines Scrn Negative (Negative) Urine Cocaine Screen Negative (Negative) U Marijuana (THC) Screen Negative (Negative) Ur Drug Screen Comment See Note Ethyl Alcohol (0.01-0.03) % SARS-CoV-2 (PCR) (Negative) Influenza Type A (PCR) (Negative) Influenza Type B (PCR) (Negative) RSV (PCR) (Negative) Lab Acknowledgement Test Added POC Glucose 55 L (60-115) mg/dl POC Creatinine (0.6-1.3) mg/dl 08/07/23 08/07/23 08/07/23 Range/Units 20:03 20:13 23:08 WBC (4.50-11.00) K/uL RBC (4.30-5.90) m/uL Hgb (13.5-17.5) gm/dL Hct (37.0-53.0) % MCV (80-100) fL MCH (26-34) pg MCHC (32-36) gm/dL RDW Coeff of [place]ician[place] (11.5-15.5) % Plt Count (140-440) K/uL Neut % (Auto) (42.0-72.0) % Lymph % (Auto) (20-44) % [place] % (Auto) (0.0-11.0) % Eos % (Auto) (0.0-7.0) % Baso % (Auto) (0.0-3.0) % Neut # (Auto) (1.7-7.0) K/uL Lymph # (Auto) (0.90-2.90) K/uL [place] # (Auto) (0.00-0.90) K/UL Eos # (Auto) (0.00-0.50) K/uL Baso # (Auto) (0.00-0.30) K/uL Abs Immat Gran (auto) (0.00-0.30) K/uL Imm/Tot Granulo (auto) % INR (0.91-1.10) APTT (23-33) Seconds VBG pH (7.32-7.43) VBG pCO2 (40-50) mmHG VBG pO2 (25-47) mmHG VBG HCO3 (21-28) mmol/L Sodium (135-149) mmol/L Potassium (3.6-5.1) mmol/L Chloride (96-114) mmol/L Carbon Dioxide (20-32) mmol/L Anion Gap (7-15) mEq/L BUN (7-30) mg/dL Creatinine (0.5-1.5) mg/dL Estimated GFR ml/min Glucose (60-115) mg/dL Lactate 2.5 H (0.5-1.9) mmol/L Calcium (8.4-10.6) mg/dL Ionized Calcium Devin (1.11-1.30) mmol/L Magnesium (1.5-2.6) mg/dL Total Bilirubin (0.1-1.5) mg/dL Direct Bilirubin (0.0-0.5) mg/dL AST (12-35) U/L ALT (4-50) U/L Alkaline Phosphatase (40-150) U/L Ammonia (13.1-30.0) umol/L Troponin I (0.01-0.04) ng/mL NT-Pro-B Natriuret Pep pg/mL Total Protein (6.0-8.3) g/dL Albumin (3.3-5.0) g/dL Procalcitonin (<0.50) ng/mL Urine Color (Yellow) Urine Appearance (Clear) Urine pH (5.0-8.5) Ur Specific [place] (1.000-1.030) Urine Protein (Negative) Urine Glucose (UA) (Negative) Urine Ketones (Negative) Urine Blood (Negative) Urine Nitrite (Negative) Urine Bilirubin (Negative) Urine Urobilinogen (0.2-1.0) Ur Leukocyte Esterase (Negative) Urine RBC (0-2) Urine WBC (0-5) Ur Squamous Epith Cells (None-Few) Urine Bacteria (None) Fine Granular Casts (None) Urine Opiates Screen (Negative) Ur Oxycodone Screen (Negative) Urine Methadone Screen (Negative) Ur Barbiturates Screen (Negative) U Tricyclic Antidepress (Negative) Ur Phencyclidine Scrn (Negative) Ur Amphetamines Screen (Negative) U Methamphetamines Scrn (Negative) U Benzodiazepines Scrn (Negative) Urine Cocaine Screen (Negative) U Marijuana (THC) Screen (Negative) Ur Drug Screen Comment Ethyl Alcohol (0.01-0.03) % SARS-CoV-2 (PCR) (Negative) Influenza Type A (PCR) (Negative) Influenza Type B (PCR) (Negative) RSV (PCR) (Negative) Lab Acknowledgement Test Added POC Glucose 129 H (60-115) mg/dl POC Creatinine (0.6-1.3) mg/dl <Dk Meehan MD - Last Filed: 08/15/23 20:02> Imaging Data CT Chest/Ab/Pelvis: Attestation: I have reviewed the pertinent imaging results. <Lexie Colvin MD - Last Filed: 08/07/23 21:14> Radiologist's impression: Patient: JESSICA GUZMÁN Facility:?[facility] Patient ID:?[id number] Site Patient ID:?[id number]. Site :?[id number] Study:?CT Chest/Abd/Pelvis w/ 112cc [id number] 7:45:34 PM Ordering Physician:Marcos Colvin Final Report: INDICATION: Weakness. TECHNIQUE: Multiplanar CT examination of the chest, abdomen and pelvis was performed after the administration of 112 mL of Isovue 370 intravenous contrast. COMPARISON: CT abdomen and pelvis 02/12/2021. FINDINGS: Motion degraded examination. CHEST: Lower neck: Visualized thyroid appears unremarkable. Cardiovascular: Normal heart size. No significant atherosclerotic calcifications of the thoracic aorta. Normal caliber of the thoracic aorta and pulmonary artery. Coronary arterial calcifications. Mediastinum and lymph nodes: No pathologic lymphadenopathy by size criteria. Lungs: Left lower lobar consolidation. Linear band like opacification of the lungs bilaterally, likely subsegmental atelectasis and/or scarring. Mild pulmonary vascular congestion. Pleura: No pleural effusions or pneumothorax. Chest wall: No axillary lymphadenopathy. Unremarkable. Bones: Diffuse osteopenia limits evaluation for subtle nondisplaced fractures or lytic lesions. No acute osseous abnormalities. ABDOMEN AND PELVIS: Liver: Unremarkable. Gallbladder: Cholecystectomy. Biliary: Pneumobilia, likely postprocedural. Pancreas: Within normal limits. Spleen: Unremarkable. Adrenals: Unremarkable. Kidneys/ureters/bladder: Kidneys are normal in size. No obstructive urinary calculus or hydronephrosis. No obstructive uropathy. The bladder is within normal limits. There are several nonobstructive urinary calculi within the collecting system of both kidneys. Gastrointestinal: Gastric lumen appears within upper limits of normal. Small hiatal hernia. Postsurgical changes of a prior small bowel resection. Nondistended loops of small bowel with fecalization of small bowel contents and air-fluid levels in the left hemiabdomen in association with the prior bowel resection site and ventral abdominal hernia defect. No pneumatosis intestinalis. Moderate to severe colonic stool burden. Pelvic structures: Unremarkable prostate. Vascular: Mild atherosclerotic calcifications of the abdominal aorta. No aneurysm. No portal venous gas. Peritoneum: Small-bowel mesenteric edema. Small amount of perihepatic free fluid. No drainable abscess. No pneumoperitoneum. No drainable fluid collections. Lymph nodes: Prominent small bowel mesenteric lymph nodes, likely reactive. Abdominal wall/soft tissues: Large ventral abdominal wall post surgical defect, seen on the prior CT from 2020. Mild diffuse anasarca. Bones: Diffuse osteopenia limits evaluation. Stable severe chronic compression fracture of L1 and moderate compression fracture of T11. No acute osseous abnormalities. IMPRESSION: 1. Left lower lobar consolidation suspicious for an underlying lobar pneumonia. 2. Nondistended loops of small bowel in the left hemiabdomen with air-fluid levels and fecalization of its contents, without definite transition point identified. This can be seen in the setting of ileus versus a partial low-grade small bowel obstruction. No pneumatosis intestinalis, portal venous gas or pneumoperitoneum. Small amount of perihepatic ascites, nonspecific. Consider short interval follow-up CT if clinically warranted. 3. Coronary arterial calcifications, advise correlation with ASCVD evaluation. 4. Small hiatal hernia. 5. Mild diffuse anasarca. Please note that all CT scans at this facility use dose modulation, iterative reconstruction, and/or weight-based dosing when appropriate to reduce radiation dose to as low as reasonably achievable. Dictated by Po Joy MD @ 08/07/2023 9:07:02 PM (Electronic Signature) <Lexie Colvin MD - Last Filed: 08/07/23 21:14> ECG Data Attestation: I personally reviewed and interpreted this ECG as follows: (Normal sinus rhythm, 74 beats per minute. Poor R-wave progression in the precordial leads, possible small Q-waves lead 1 and aVL, no active ischemia noted. QT corrected 420 milliseconds.) <Lexie Colvin MD - Last Filed: 08/07/23 21:14> Prior ECG tracings: not available for review <Lexie Colvin MD - Last Filed: 08/07/23 21:14> Critical Care Time Critical Care Time Critical Care Time: Yes Attestation: The patient required my highest level preparedness to intervene emergently and I personally spent this critical care time directly and personally managing the patient. This critical care time included: Obtaining a history; Examining the patient; Pulse oximetry; Ordering and reviewing of studies; Arranging urgent treatment with development of a management plan; Evaluation of patients response to treatment; Frequent reassessment discussions with other providers. This critical care time was performed to assess and manage the high probability of imminent life-threatening deterioration that could result in multiorgan failure. It was exclusive of separate billable procedures and treating other patients and teaching time. <Gaurav Cedeño DO - Last Filed: 08/08/23 00:33> Total Critical Care Time in Minutes: 79 <Gaurav Cedeño DO - Last Filed: 08/08/23 00:33> 120 <Dk Meehan MD - Last Filed: 08/15/23 20:02> Discharge Plan Discharge Clinical Impression: Hypoglycemia associated with diabetes Pneumonia Qualifiers: Pneumonia type: due to unspecified organism Laterality: left Lung location: lower lobe of lung Qualified Code(s): J18.9 - Pneumonia, unspecified organism <Lexie Colvin MD - Last Filed: 08/07/23 21:14> Patient Disposition: [facility] <Lexie Colvin MD - Last Filed: 08/07/23 21:14> Discharge Location: [facility] <Lexie Colvin MD - Last Filed: 08/07/23 21:14> Prescriptions: No Action venlafaxine 37.5 mg capsule,extended release 24hr 37.5 mg PO DAILY pimecrolimus 1 % cream topical BID hydrocodone-acetaminophen 10-325 mg tablet 1 tab PO 3XD PRN (Reason: chronic pain) levothyroxine 88 mcg tablet PO potassium chloride [Klor-Con M20] 20 mEq tablet,ER particles/crystals 20 meq PO 3XD amlodipine 10 mg tablet 10 mg PO DAILY losartan 25 mg tablet 25 mg PO DAILY nystatin-triamcinolone 100,000-0.1 unit/g-% cream topical BID-TID PRN furosemide 20 mg tablet 20 mg PO DAILY ergocalciferol (vitamin D2) 1,250 mcg (50,000 unit) capsule 1,250 mcg PO insulin lispro [Humalog KwikPen Insulin] 100 unit/mL insulin pen subcut aripiprazole 20 mg tablet 20 mg PO DAILY rosuvastatin 40 mg tablet 40 mg PO DAILY pregabalin 200 mg capsule 200 mg PO 3XD buprenorphine-naloxone 8-2 mg film 10 mg sublingual 3XD testosterone 20.25 mg/1.25 gram (1.62 %) gel in metered-dose pump 2 pump topical DAILY Creon 36,000-114,000- 180,000 unit capsule,delayed release(DR/EC) 4 cap PO 3XD Baqsimi 3 mg/actuation spray,non-aerosol INTRANASAL DIRECTED insulin glargine-yfgn [Semglee(insulin glarg-yfgn)Pen] 100 unit/mL (3 mL) insulin pen 25 unit subcut QPM Tyrvaya 0.03 mg/spray spray, metered, non-aerosol INTRANASAL Patient Comments: [NO ORIGINAL SIG] Ozempic 0.25 mg or 0.5 mg (2 mg/3 mL) pen injector subcut <Lexie Colvin MD - Last Filed: 08/07/23 21:14> Stand Alone [facility]: [facility] Info Instructions <Lexie Colvin MD - Last Filed: 08/07/23 21:14>
--- NOTE | 2023-08-07 19:07 | CT_ITS ---
Patient: JESSICA GUZMÁN Facility:?[facility] Patient ID:?[id number] Site Patient ID:?[id number]. Site :?[id number] Study:?CT-Chest/Abd/Pelvis w/ 112cc [id number] 7:45:34 PM Ordering Physician:Marcos Colvin Final Report: INDICATION: Weakness. TECHNIQUE: Multiplanar CT examination of the chest, abdomen and pelvis was performed after the administration of 112 mL of Isovue 370 intravenous contrast. COMPARISON: CT abdomen and pelvis 02/12/2021. FINDINGS: Motion degraded examination. CHEST: Lower neck: Visualized thyroid appears unremarkable. Cardiovascular: Normal heart size. No significant atherosclerotic calcifications of the thoracic aorta. Normal caliber of the thoracic aorta and pulmonary artery. Coronary arterial calcifications. Mediastinum and lymph nodes: No pathologic lymphadenopathy by size criteria. Lungs: Left lower lobar consolidation. Linear band like opacification of the lungs bilaterally, likely subsegmental atelectasis and/or scarring. Mild pulmonary vascular congestion. Pleura: No pleural effusions or pneumothorax. Chest wall: No axillary lymphadenopathy. Unremarkable. Bones: Diffuse osteopenia limits evaluation for subtle nondisplaced fractures or lytic lesions. No acute osseous abnormalities. ABDOMEN AND PELVIS: Liver: Unremarkable. Gallbladder: Cholecystectomy. Biliary: Pneumobilia, likely postprocedural. Pancreas: Within normal limits. Spleen: Unremarkable. Adrenals: Unremarkable. Kidneys/ureters/bladder: Kidneys are normal in size. No obstructive urinary calculus or hydronephrosis. No obstructive uropathy. The bladder is within normal limits. There are several nonobstructive urinary calculi within the collecting system of both kidneys. Gastrointestinal: Gastric lumen appears within upper limits of normal. Small hiatal hernia. Postsurgical changes of a prior small bowel resection. Nondistended loops of small bowel with fecalization of small bowel contents and air-fluid levels in the left hemiabdomen in association with the prior bowel resection site and ventral abdominal hernia defect. No pneumatosis intestinalis. Moderate to severe colonic stool burden. Pelvic structures: Unremarkable prostate. Vascular: Mild atherosclerotic calcifications of the abdominal aorta. No aneurysm. No portal venous gas. Peritoneum: Small-bowel mesenteric edema. Small amount of perihepatic free fluid. No drainable abscess. No pneumoperitoneum. No drainable fluid collections. Lymph nodes: Prominent small bowel mesenteric lymph nodes, likely reactive. Abdominal wall/soft tissues: Large ventral abdominal wall post surgical defect, seen on the prior CT from 2020. Mild diffuse anasarca. Bones: Diffuse osteopenia limits evaluation. Stable severe chronic compression fracture of L1 and moderate compression fracture of T11. No acute osseous abnormalities. IMPRESSION: 1. Left lower lobar consolidation suspicious for an underlying lobar pneumonia. 2. Nondistended loops of small bowel in the left hemiabdomen with air-fluid levels and fecalization of its contents, without definite transition point identified. This can be seen in the setting of ileus versus a partial low-grade small bowel obstruction. No pneumatosis intestinalis, portal venous gas or pneumoperitoneum. Small amount of perihepatic ascites, nonspecific. Consider short interval follow-up CT if clinically warranted. 3. Coronary arterial calcifications, advise correlation with ASCVD evaluation. 4. Small hiatal hernia. 5. Mild diffuse anasarca. Please note that all CT scans at this facility use dose modulation, iterative reconstruction, and/or weight-based dosing when appropriate to reduce radiation dose to as low as reasonably achievable. Dictated by Po Joy MD @ 08/07/2023 9:07:02 PM ----- ADDENDUM ----- Findings communicated to Dr. Colvin at 21:13 on 08/07/2023. Dictated by Po Joy MD @ Aug 07 2023 9:22PM Signed by:?Po Joy MD @08/07/2023 9:07:02 PM (Electronic Signature)
[2023-08-07 19:16] LABS: HCO3 VBG 25 mmol/L (21-28); Lactate* 3.1 mmol/L (0.5-1.9); PCO2 VBG 44 mmHG (40-50); PO2 VBG 51.6 mmHG (25-47); pH VBG 7.365 (7.32-7.43)
[2023-08-07 19:19] LABS: Basophils Absolute Auto 0.04 K/uL (0.00-0.30); Basophils Percent Auto 0.4 % (0.0-3.0); Eosinophils Absolute Auto 0.09 K/uL (0.00-0.50); Eosinophils Percent Auto 0.9 % (0.0-7.0); Hematocrit 29.4 % (37.0-53.0); Hemoglobin* 8.2 gm/dL (13.5-17.5); Immature Granulocytes Abs Auto 0.03 K/uL (0.00-0.30); Immature Granulocytes Pct Auto 0.3 %; Lymphocytes Percent Auto 6.8 % (20-44); Mean Corpuscular HGB Conc 28 gm/dL (32-36); Mean Corpuscular Hemoglobin 28 pg (26-34); Mean Corpuscular Volume 99 fL (80-100); Monocytes Percent Auto 10.6 % (0.0-11.0); Platelet Count* 445 K/uL (140-440); RDW Coefficient of Variation % 18.6 % (11.5-15.5); Red Blood Count 2.98 m/uL (4.30-5.90); White Blood Count* 10.45 K/uL (4.50-11.00)
[2023-08-07 19:20] LABS: Glucose, Point-of-Care* 43 mg/dl (60-115)
[2023-08-07 19:20] LABS: Glucose, Point-of-Care* 89 mg/dl (60-115)
[2023-08-07 19:26] LABS: Slide Review Reflex No
[2023-08-07 19:28] LABS: Creatinine, Point-of-Care* 0.3 mg/dl (0.6-1.3)
[2023-08-07 19:36] LABS: Albumin* 2.3 g/dL (3.3-5.0); Chloride* 104 mmol/L (96-114); Sodium* 133 mmol/L (135-149)
[2023-08-07 19:38] LABS: Anion Gap 9 mEq/L (7-15); Carbon Dioxide* 20 mmol/L (20-32); Creatinine* 0.3 mg/dL (0.5-1.5); Estimated Glomerular Filt Rate 140 ml/min
[2023-08-07 19:39] LABS: Alanine Aminotransferase* 22 U/L (4-50); Alkaline Phosphatase* 978 U/L (40-150); Aspartate Amino Transferase* 46 U/L (12-35); Bilirubin Direct* 0.3 mg/dL (0.0-0.5); Bilirubin Total* 0.6 mg/dL (0.1-1.5); Blood Urea Nitrogen* 5 mg/dL (7-30); Calcium* 7.6 mg/dL (8.4-10.6); Total Protein* 6.6 g/dL (6.0-8.3)
[2023-08-07 19:40] LABS: Partial Thromboplastin Time* 41 Seconds (23-33)
[2023-08-07 19:50] LABS: Glucose, Point-of-Care* 55 mg/dl (60-115)
[2023-08-07] MEDS: 5 % DEXTROSE IN LAC RINGER'S 1,000 ML 75 ML IV (19:55)
[2023-08-07 19:58] LABS: Ethanol* < 0.01 % (0.01-0.03); Glucose* 39 mg/dL (60-115)
[2023-08-07 20:01] LABS: Troponin I* 0.01 ng/mL (0.01-0.04)
[2023-08-07 20:04] LABS: Glucose, Point-of-Care* 129 mg/dl (60-115)
[2023-08-07 20:05] LABS: PCR FLU A Negative PCR FLU A (Negative); PCR FLU B Negative PCR FLU B (Negative); PCR RSV Negative PCR RSV (Negative); SARS PCR* Negative SARS-CoV-2 (Negative)
[2023-08-07 20:05] LABS: Appearance Urine Clear (Clear); Bilirubin Urine Negative (Negative); Blood Urine Negative (Negative); Color Urine Dark yellow (Yellow); Glucose Urine Negative (Negative); Ketones Urine Negative (Negative); Leukocyte Esterase Urine Negative (Negative); Nitrite Urine Negative (Negative); Protein Urine Negative (Negative); Urobilinogen Urine 0.2 (0.2-1.0); pH Urine 6.5 (5.0-8.5)
[2023-08-07 20:09] LABS: Amphetamine Screen Urine Negative (Negative); Barbiturate Screen Urine Negative (Negative); Benzodiazepines Screen Urine Negative (Negative); Cannabinoid Screen Urine Negative (Negative); Cocaine Screen Urine Negative (Negative); Methadone Screen Urine Negative (Negative); Methamphetamines Screen Urine Negative (Negative); Opiate Screen Urine Negative (Negative); Oxycodone Screen Urine POSITIVE (Negative); Phencyclidine Screen Urine Negative (Negative); Tricyclic Antidepressant Urine Negative (Negative)
[2023-08-07 20:17] LABS: RBC Urine 0-2 (0-2); Squamous Epithelial Cell Urine Moderate (None-Few); WBC Urine 0-2 (0-5)
[2023-08-07 20:18] LABS: Fine Granular Casts Urine Few
[2023-08-07 20:46] LABS: Ionized Calcium* 1.13 mmol/L (1.11-1.30)
[2023-08-07 20:51] LABS: INR 1.04 (0.91-1.10); Prothrombin Time 14.3 Seconds
[2023-08-07] MEDS: PIPERACILLIN/TAZOBACTAM 3.375 GM in 0.9 % SODIUM CHLORIDE Mini-bag 100 ML IVPB (20:51)
[2023-08-07] MEDS: 10 % DEXTROSE 500 ML 500 ML 75 ML IV (21:00)
[2023-08-07 21:01] LABS: NT Pro B Type NatriureticPept* 443 pg/mL
[2023-08-07 21:19] LABS: Magnesium* 2.2 mg/dL (1.5-2.6); Procalcitonin* 1.29 ng/mL (<0.50)
[2023-08-07 23:50] LABS: Lactate* 2.5 mmol/L (0.5-1.9)
[2023-08-08] VITALS (12 sets, daily range): BP systolic 110–143; BP diastolic 57–67; PULSE 77–84; RESP 18–20; O2SAT 84–94
[2023-08-08] MEDS: ONDANSETRON 2 MG/ML inj 4 MG IVP (00:23)
[2023-08-08] MEDS: 10 % DEXTROSE 500 ML 500 ML 125 ML IV (01:35)
== END 2023-08-08 03:05 | disposition short-term general hospital (02) ==
PROVIDERS: Family Medicine; Emergency Provider Student in an Organized Health Care Education/Training Program
DX: J18.9 Pneumonia, unspecified organism (principal); E11.649 Type 2 diabetes mellitus with hypoglycemia without coma
CPT/HCPCS: 36415; 71260; 74177; 80053; 80306; 81001; 82077; 82140; 82248; 82330; 82565; 82803; 82947; 82962; 83605; 83735; 83880; 84145; 84484; 85025; 85610; 85730; 87040; 87631; 93005; 94761; 96365; 96366; 96375; 99285; 99291; J2354; J2405; J2543; J3370; J7030; Q9967

== ENCOUNTER 2023-08-08 02:18 | Outpatient (CLI) | payer MEDICARE, BC, SELFPAY | END 2023-08-08 02:19 | disposition home or self-care (01) | LOC: AMB 08-19 22:20 | PROVIDERS: Visit Provider Family Medicine | DX: J18.9 Pneumonia, unspecified organism (principal); D64.9 Anemia, unspecified; E11.649 Type 2 diabetes mellitus with hypoglycemia without coma; R53.1 Weakness | CPT/HCPCS: A0425; A0434 ==

== ENCOUNTER 2024-09-21 08:30 | Outpatient (RCR) | payer MEDICARE, BC, SELFPAY ==
[2024-09-21] VITALS (13 sets, daily range): BP systolic 112–135; BP diastolic 67–77; PULSE 62–80; RESP 16–18; TEMP 36.6–36.9; O2SAT 90–95
== END 2025-03-19 23:59 | disposition home or self-care (01) ==
LOC: CCIC 08:30
PROVIDERS: PCP Family Medicine; Visit Provider Family Medicine
DX: D64.9 Anemia, unspecified (principal)
CPT/HCPCS: 36415; 36430; 86850; 86900; 86901; 86922; P9016

== ENCOUNTER 2024-10-04 15:15 | Outpatient (RCR) | payer MEDICARE, BC, SELFPAY | END 2025-02-01 23:59 | disposition home or self-care (01) | PROVIDERS: Visit Provider Physical Medicine & Rehabilitation | DX: M24.562 Contracture, left knee (principal); M25.562 Pain in left knee; G89.29 Other chronic pain; M80.88XD Other osteoporosis with current pathological fracture, vertebra(e), subsequent encounter for fracture with routine healing; Z89.611 Acquired absence of right leg above knee; Z51.89 Encounter for other specified aftercare | CPT/HCPCS: 97110; 97140; 97162; 97530 ==